=== PATIENT | female | born 2000 | race Caucasian/White ===

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

== ENCOUNTER 2021-03-15 12:08 | Emergency (ER) | payer BC, SELFPAY ==
[2021-03-15 14:16] VITALS: BP 140/88; PULSE 76; RESP 16; TEMP 36.8; O2SAT 99; BMI 22.8
--- NOTE | 2021-03-15 14:46 | HMH.EDUTC ---
[facility] [place] Disposition Clinical Impression: Vertigo Nausea & vomiting Qualifiers: Vomiting type: unspecified Vomiting Intractability: unspecified Qualified Code(s): R11.2 - Nausea with vomiting, unspecified Disposition: Home, Self-Care Condition on Discharge: Good Instructions: Vertigo, Nausea and Vomiting-Adult, Ondansetron Additional Instructions: You was given Meclizine for dizziness this medication will also help with your nausea associated with dizziness *Monitor Temp, Over the counter Motrin or Tylenol as directed/as needed Tylenol every 4 hours and Motrin every 6 hours (as long as your family doctor has told you that you can take it) for fever or pain. and straight to ER if unable to lower temp less than 101.0 after medication given *Warm salt water gargles may help to soothe the throat *Throat Lozenges *Warm fluids like tea with honey may help to soothe the throat *Sleep elevated *Humidifier/Vaporizer Follow up IMMEDIATELY for new or worsening symptoms or no Noticeable improvement over the next 48-72 hours. 911 for difficulty breathing or swallowing You were tested for today for COVID19 your test result should be back in the next 24-48 hours, you was given handout on how to check for your results on [facility] if you have issues or no internet access you may call the [facility] You was given a handout with instructions for Self Quarantine and Self isolation for while you wait on test results and what to do if they are positive If you are positive the Health Dept will be contacting you also Make sure to take your Vitamins Vit. C Vit D and Zinc if you can take them Prescriptions: Meclizine HCl 12.5 mg PO TID PRN #12 tab PRN Reason: Dizziness Transmission Status: Pending to [facility] Referrals: Guru Talamantes MD [Primary Care Provider] - As needed Forms: Work/School Release Time of Disposition: 14:53 Medical Decision Making - Nolberto Inquiry Pt receiving controlled substance: No Nolberto was queried for this patient: No Vital Signs: 03/15/21 14:16 Temperature 98.2 F Temperature Source Oral Pulse Rate [Right Radial] 76 Respiratory Rate 16 Blood Pressure [Right Arm] 140/88 Blood Pressure Mean [Right Arm] 105 02 Sat by Pulse Oximetry 99 Oxygen Delivery Method Room Air Orders (Tests/Meds): ORDERS Category Date Time Status Covid-19 Nasal PCR ([facility]) Routine Lab 03/15/21 14:28 Ordered Medical Decision Narrative: Patient denies chance of States that she is suppose to be on medication but she hasnt been on it for about 2-3 mths wants to get tested for COVID [facility] [place] HPI - General Stated complaint: headache Time Seen by Provider: 03/15/21 14:46 Mode of Arrival: Ambulatory Source of Information: Patient Limitations: No Limitations Description of Symptoms (Recalled from Triage Doc. by RN): Pt c/o being lightheaded and nauseas x2 days HEENT Symptoms (Recalled from RN notes): No Resp Symptoms (Recalled from RN notes): No Skin Symptoms (Recalled from RN notes): No MS Symptoms (Recalled from RN notes): No Functional Status (Recalled from RN notes): n/a - History of Present Illness Provider Complaint: Patient states that she has not been feeling well for the last couple of days States that she has been having nausea and feeling dizzy at times when she stands up to quickly States that she feels like the room is spinning States that she has a history of dizziness but several people at work have been out with COVID so she wanted to get tested States that [facility] is not having any dizziness at this time - Related Data Home Medications Medication Instructions Recorded Confirmed Fluoxetine HCl [Prozac] 40 mg PO DAILY 09/18/20 12/06/20 Previous Rx's Medication Instructions Recorded Promethazine HCl [Phenergan 12.5mg 12.5 mg RC Q6HP PRN #6 supp.rect 11/29/20 Suppository] Meclizine HCl 12.5 mg PO TID PRN #12 tab 03/15/21 Allergies Allergy/AdvReac Type Severity Reaction Sta
[2021-03-15 14:54] VITALS: BP 140/88; PULSE 76; RESP 16; TEMP 36.8; O2SAT 99
== END 2021-03-15 14:58 | disposition home or self-care (01) ==
PROVIDERS: Emergency Provider Nurse Practitioner; PCP Internal Medicine Adolescent Medicine
DX: R42 Dizziness and giddiness (principal); Z20.822 Contact with and (suspected) exposure to COVID-19
CPT/HCPCS: 99202; C9803; G0463; U0003; U0005

== ENCOUNTER 2021-04-04 10:46 | Emergency (ER) | payer BC, SELFPAY ==
[2021-04-04 10:50] VITALS: BP 103/77; PULSE 91; RESP 19; TEMP 37; O2SAT 99; BMI 26.5
[2021-04-04 10:59] VITALS: BP 103/77; PULSE 91; RESP 19; TEMP 37; O2SAT 99
--- NOTE | 2021-04-04 11:04 | HMH.EDUTC ---
[facility] [place] Impression: Menstrual cramps Disposition: Home, Self-Care Condition on Discharge: Good Instructions: Menstrual Problems, General (Alternative Therapy), Painful Menstrual Periods Additional Instructions: Over the counter Midol may help with Menstrual Craps and pain *Warm soaks in warm water and epson salt may help with cramping Follow up with OBGYN if needed Straigh to ER if any life threatening symptoms Return if needed Referrals: Guru Talamantes MD [Primary Care Provider] - As needed Forms: Work/School Release Time of Disposition: 11:06 Medical Decision Making - Nolberto Inquiry Pt receiving controlled substance: No Nolberto was queried for this patient: No Vital Signs: 04/04/21 10:50 04/04/21 10:59 Temperature 98.6 F 98.6 F Temperature Source Oral Pulse Rate 91 H Pulse Rate [Right Brachial] 91 H Respiratory Rate 19 19 Blood Pressure 103/77 L Blood Pressure [Right Arm] 103/77 L Blood Pressure Mean [Right Arm] 85 Blood Pressure Source [Right Arm] Automatic Cuff Blood Pressure Position [Right Arm] Sitting 02 Sat by Pulse Oximetry 99 Oxygen Delivery Method Room Air [facility] [place] - General Stated complaint: MOLINA Needs Dr note Time Seen by Provider: 04/04/21 11:04 Mode of Arrival: Ambulatory Source of Information: Patient Limitations: No Limitations Description of Symptoms (Recalled from Triage Doc. by RN): PATIENT STATES SHE CALLED INTO WORK THIS AM D/T BAD CRAMPS AND NAUSEA AND IS NEEDING A WORK NOTE HEENT Symptoms (Recalled from RN notes): No Resp Symptoms (Recalled from RN notes): No Skin Symptoms (Recalled from RN notes): No MS Symptoms (Recalled from RN notes): No Functional Status (Recalled from RN notes): WNL - History of Present Illness Provider Complaint: Patient states that she woke up and she had started her periods and was having bad cramping and nausea States that she gets this way sometimes when she starts her period and she had to call into work and needed a Doctor note - Related Data Home Medications Medication Instructions Recorded Confirmed Fluoxetine HCl [Prozac] 40 mg PO DAILY 09/18/20 12/06/20 Previous Rx's Medication Instructions Recorded Promethazine HCl [Phenergan 12.5mg 12.5 mg RC Q6HP PRN #6 supp.rect 11/29/20 Suppository] Meclizine HCl 12.5 mg PO TID PRN #12 tab 03/15/21 Allergies Allergy/AdvReac Type Severity Reaction Status Date / Time No Known Allergies Allergy Verified 11/29/20 11:31 - Worker's Comp Is this a Worker's Comp case?: No H History - Hepatitis A Screen Drug use history?: No High risk sexual behaviors?: No History of sexually transmitted infection?: No Currently employed?: No Childcare worker?: No Do you have indoor plumbing?: Yes Do you have electricity?: Yes Attestation statement:: This patient has been screened for Hepatitis A risk factors. I have reviewed the patient's past medical history: Yes - Social History Smoking Status: Smoker, status unknown Alcohol Intake: never Alcohol Intake Frequency:: other Substance Use Type: denies use Occupational Status: other ROS Obtained: Yes All systems reviewed & no additional complaints, Yes Systems reviewed as appropriate & no additional complaints - Constitutional Constitutional: Reports system reviewed and no additional complaints, except as docu, Denies body ache, Denies chills, Denies fever(s), Reports headache(s) - ENT Ears, Nose, Mouth, and Throat: Reports system reviewed and no additional complaints, except as docu - Cardiovascular Cardiovascular: Reports system reviewed and no additional complaints, except as docu - Respiratory Respiratory: Reports system reviewed and no additional complaints, except as docu - Gastrointestinal Gastrointestingal: Reports: system reviewed and no additional complaints, except as docu, cramping Physical Exam - General General appearance: alert, in no apparent distress - Respiratory Respirato
== END 2021-04-04 11:10 | disposition home or self-care (01) ==
PROVIDERS: Emergency Provider Nurse Practitioner; PCP Internal Medicine Adolescent Medicine
DX: N94.6 Dysmenorrhea, unspecified (principal); F17.210 Nicotine dependence, cigarettes, uncomplicated
CPT/HCPCS: 99202; G0463

== ENCOUNTER 2021-09-18 09:02 | Emergency (ER) | payer BC, SELFPAY ==
[2021-09-18 09:05] VITALS: BP 117/75; PULSE 74; RESP 18; TEMP 37.2; O2SAT 99; BMI 16.2
[2021-09-18 09:36] LABS: UTC Influenza A Antigen Positive (Negative)
[2021-09-18 09:37] LABS: UTC Influenza B Antigen Negative (Negative)
--- NOTE | 2021-09-18 09:44 | HMH.EDUTC ---
[facility] [place]ression: Influenza Disposition: Home, Self-Care Condition on Discharge: Good Instructions: How to Avoid a Cold or Flu, Influenza Additional Instructions: ? Start Tamiflu today if you are going to take it. Discussed risk and possible benefits. ? Lots of rest ? Increase Fluids water, Gatorade, powerade, pedialyte,if infant/toddler/child ? Alternate Tylenol and / or ibuprofen as discussed for fever, aches, chills Follow up IMMEDIATELY with your family doctor for new or worsening Symptoms OR no noticeable improvement over the next 48-72 hours, 911 for difficulty or breathing ? You or your child area contagious until no fever, aches, chills for 24 hours with medication for symptoms ? Help Prevent the spread of influenza: ? Wash your hands often. Use soap and water. Wash your hands after you use the bathroom, change a child's diapers, or sneeze. Wash your hands before you prepare or eat food. Use gel hand cleanser that has 60% alcohol, when soap and water are not available. Do not touch your eyes, nose, or mouth unless you have washed your hands first. ? Cover your mouth when you sneeze or cough. Cough into a tissue or the bend of your arm. If you use a tissue, throw it away immediately and wash your hands. ? Clean shared items with a germ-killing window cleaner. Clean table surfaces, doorknobs, and light switches. Do not share towels, silverware, and dishes with people who are sick. Wash bed sheets, towels, silverware, and dishes with soap and water. ? Wear a mask over your mouth and nose if you are sick. The face mask may help protect others from becoming infected with the flu. Wear the mask when in common areas of your home or if you seek care with a healthcare provider. ? Stay away from others if you are sick. Stay at home until 24 hours after your fever and symptoms are gone. Prescriptions: Oseltamivir Phosphate [Tamiflu 75mg Capsule] 75 mg PO BID #10 cap Transmission Status: Pending to [facility] Referrals: Guru Talamantes MD [Primary Care Provider] - As needed Forms: Work/School Release Time of Disposition: 09:45 Medical Decision Making - Nolberto Inquiry Pt receiving controlled substance: No Nolberto was queried for this patient: No Vital Signs: 09/18/21 09:05 Temperature 98.9 F Temperature Source Oral Pulse Rate [Right Brachial] 74 Respiratory Rate 18 Blood Pressure [Right Arm] 117/75 Blood Pressure Mean [Right Arm] 89 Blood Pressure Source [Right Arm] Automatic Cuff Blood Pressure Position [Right Arm] Sitting 02 Sat by Pulse Oximetry 99 Oxygen Delivery Method Room Air - Lab Data Lab results reviewed: Yes: I reviewed the patient's lab results. Lab Results 09/18/21 09:16: Influenza Type A Ag Positive A, Influenza Type B Ag Negative [facility] [place] - General Stated complaint: fever, weakness, chills Time Seen by Provider: 09/18/21 09:44 Mode of Arrival: Ambulatory Source of Information: Patient Limitations: No Limitations Description of Symptoms (Recalled from Triage Doc. by RN): PATIENT C/O FEVER, CHILLS, SWEATING, AND NAUSEA SINCE MONDAY HEENT Symptoms (Recalled from RN notes): No Resp Symptoms (Recalled from RN notes): No Skin Symptoms (Recalled from RN notes): No MS Symptoms (Recalled from RN notes): No Functional Status (Recalled from RN notes): WNL - History of Present Illness Provider Complaint: Patient state that she started feeling bad on with body aches States that since then she has been having body aches, chills, fever, sweating and nausea States that today she was still feeling bad so she came back in to get checked - Related Data Home Medications Medication Instructions Recorded Confirmed Fluoxetine HCl 40 mg PO DAILY 09/18/21 09/18/21 Previous Rx's Medication Instructions Recorded Oseltamivir Phosphate [Tamiflu 75 mg PO BID #10 cap 09/18/21 75mg Capsule] Allergies Allergy/AdvReac Type Severity Reaction Status Date / Time No Kn
[2021-09-18 09:51] VITALS: BP 117/75; PULSE 74; RESP 18; TEMP 37.2; O2SAT 99
== END 2021-09-18 09:54 | disposition home or self-care (01) ==
PROVIDERS: Emergency Provider Nurse Practitioner; PCP Internal Medicine Adolescent Medicine
DX: J10.1 Influenza due to other identified influenza virus with other respiratory manifestations (principal); F17.290 Nicotine dependence, other tobacco product, uncomplicated
CPT/HCPCS: 87804; 99212; G0463

== ENCOUNTER 2022-01-22 11:15 | Emergency (ER) | payer BC, SELFPAY ==
[2022-01-22 11:55] VITALS: BP 131/73; PULSE 92; RESP 19; TEMP 37.3; O2SAT 100; BMI 18.8
[2022-01-22 12:03] LABS: Apearance,Urine Clear (Clear); Bilirubin,Urine Negative (Negative); Blood, Urine 2+ (Negative); Color,Urine Yellow (Yellow); Glucose,Urine (UA) Negative (Negative); Ketones,Urine Negative (Negative); Protein,Urine 1+ (Negative); UTC Leukocyte Esterase,Urine Trace (Negative); UTC Nitrate,Urine Negative (Negative); Urobilinogen,Urine 0.2 EU/dl (0.2)
--- NOTE | 2022-01-22 12:12 | HMH.EDUTC ---
[facility] [place] Clinical Impression: UTI (urinary tract infection) Qualifiers: Urinary tract infection type: acute cystitis Hematuria presence: without hematuria Qualified Code(s): N30.00 - Acute cystitis without hematuria Disposition: Home, Self-Care Condition on Discharge: Good Instructions: DI for Urinary Tract Infection (UTI) Additional Instructions: Increase fluids, water and not soda or tea. Can drink cranberry juice or cranberry extract. White front to back Wear cotton underwear Empty bladder after intercourse Start antibiotics immediately and make sure you take the full course although you may start to see improvement over the next 48 hours. You can eat yogurt or take probiotics to decrease diarrhea or yeast infection caused by the antibiotic Be sure to follow-up anytime for new or worsening symptoms in 48 hours for wound urine culture results be sure to let you PCP no recent urine for culture so they can request records and ensure that you have appropriate antibiotic if you are not getting better or getting worse. If symptoms worsen or do not improve return or be seen in the ER. Follow-up with primary care this week. Prescriptions: cephALEXin [Cephalexin 500mg Tab] 500 mg PO BID 7 Days #14 tab Transmission Status: Pending to [facility] Referrals: Guru Talamantes MD [Primary Care Provider] - Time of Disposition: 12:17 Medical Decision Making - Nolberto Inquiry Pt receiving controlled substance: No Vital Signs: 01/22/22 11:55 Temperature 99.1 F Temperature Source Oral Pulse Rate [Right Brachial] 92 H Respiratory Rate 19 Blood Pressure [Right Arm] 131/73 Blood Pressure Mean [Right Arm] 92 Blood Pressure Source [Right Arm] Automatic Cuff Blood Pressure Position [Right Arm] Sitting 02 Sat by Pulse Oximetry 100 Oxygen Delivery Method Room Air - Lab Data Lab Results 01/22/22 12:02: Urine Color Yellow, Urine Appearance Clear, Urine pH 6.0, Ur Specific [place] 1.030, Urine Protein 1+, Urine Glucose (UA) Negative, Urine Ketones Negative, Urine Blood 2+, Urine Nitrate Negative, Urine Bilirubin Negative, Urine Urobilinogen 0.2, Ur Leukocyte Esterase Trace Orders (Tests/Meds): ORDERS Category Date Time Status Urine Culture Stat Micro 01/22/22 12:04 Ordered [facility] [place] - General Chief complaint: [facility] Stated complaint: back pain Time Seen by Provider: 01/22/22 12:12 Mode of Arrival: Ambulatory Source of Information: Patient Limitations: No Limitations Description of Symptoms (Recalled from Triage Doc. by RN): PATIENT C/O CHILLS, VOMITING, FEVER, AND BACK PAIN SINCE YESTERDAY HEENT Symptoms (Recalled from RN notes): No Resp Symptoms (Recalled from RN notes): No Skin Symptoms (Recalled from RN notes): No MS Symptoms (Recalled from RN notes): No Functional Status (Recalled from RN notes): WNL - History of Present Illness Provider Complaint: 21 yr old female presents for fever,chills,back pain and uti symptoms - Related Data Previous Rx's Medication Instructions Recorded fluoxetine 40 mg capsule 40 mg PO DAILY #30 cap 12/17/21 cephALEXin [Cephalexin 500mg Tab] 500 mg PO BID 7 Days #14 tab 01/22/22 Allergies Allergy/AdvReac Type Severity Reaction Status Date / Time No Known Allergies Allergy Verified 09/30/21 13:47 - Worker's Comp Is this a Worker's Comp case?: No [facility] History - Hepatitis A Screen Attestation statement:: This patient has been screened for Hepatitis A risk factors. I have reviewed the patient's past medical history: Yes Comment: she did get the COVID vaccines - Social History Smoking Status: Current every day smoker Tobacco Type: e-cigarettes (not cigarettes; just her vape; she gets the throw away; 1000 puffs lasts her 4 days) Alcohol Intake: never Alcohol Intake Frequency:: other Substance Use Type: denies use Occupational Status: other ROS Obtained: Yes Systems reviewed as appropriate & no additional complaints
[2022-01-22 12:18] VITALS: BP 131/73; PULSE 92; RESP 19; TEMP 37.3; O2SAT 100
== END 2022-01-22 12:25 | disposition home or self-care (01) ==
PROVIDERS: Emergency Provider Nurse Practitioner Family; PCP Internal Medicine Adolescent Medicine
DX: N30.00 Acute cystitis without hematuria (principal); M54.9 Dorsalgia, unspecified; R50.81 Fever presenting with conditions classified elsewhere; R11.10 Vomiting, unspecified; Z72.0 Tobacco use; R35.0 Frequency of micturition; R39.15 Urgency of urination; R30.0 Dysuria
CPT/HCPCS: 81003; 87086; 87088; 87186; 99212; G0463

== ENCOUNTER 2022-07-02 07:56 | Emergency (ER) | payer BC, SELFPAY ==
--- NOTE | 2022-07-02 08:22 | EXP.UTC ---
Discharge Plan Disposition Patient Disposition: Home, Self-Care Condition: Good Prescriptions Prescriptions: New azithromycin [Zithromax] 250 mg tablet 250 mg PO UD DOSE PK Qty: 6 0RF Rx Instructions: Take two (2) tablets today, then one (1) tablet days #2 thru #5 [id number]-agghtlswv-QE [Bromfed DM] 2-30-10 mg/5 mL Syrup 5 ml PO Q6H PRN (Reason: Cough) Qty: 240 0RF ondansetron 4 mg Tablet,Disintegrating 4 mg PO Q8H PRN (Reason: Nausea) Qty: 20 0RF No Action fluoxetine 40 mg capsule 40 mg PO DAILY Qty: 30 1RF hydroxyzine HCl 25 mg tablet 25 mg PO TID Qty: 90 0RF Referrals Follow up/Referrals: Guru Talamantes MD [Primary Care Provider] - See instructions Activity Restrictions/Add. Instructions Additional Instructions/Restrictions: Drink plenty of fluids. Take tylenol or ibuprofen for pain or fever. Take the medications as directed. Follow up with your regular doctor. GO TO THE ER FOR ANY WORSENING SYMPTOMS Clinical Impressions Clinical Impression: Acute viral syndrome, Sinusitis Discharge ED Provider: Buzz Cunningham [facility] General Stated complaint: Congestion,Nausea, Fever Time Seen by Provider: 07/02/22 08:22 History of Present Illness Provider Complaint: She states that for the past 4 days she has had fever, chills, body aches, nausea, vomiting and cough. Related Data Previous Rx's Medication Instructions Recorded fluoxetine 40 mg capsule 40 mg PO DAILY Depression #30 caps 05/17/22 hydroxyzine HCl 25 mg tablet 25 mg PO TID #90 tabs 05/17/22 azithromycin 250 mg tablet 250 mg PO UD DOSE PK #6 tabs 07/02/22 (Zithromax) whsenbrnzswerda-kldoklpamugwdso-LD 5 ml PO Q6H PRN Cough #240 mL 07/02/22 2 mg-30 mg-10 mg/5 mL oral syrup (Bromfed DM) ondansetron 4 mg disintegrating 4 mg PO Q8H PRN Nausea #20 tabs 07/02/22 tablet Allergies Allergy/AdvReac Type Severity Reaction Status Date / Time No Known Allergies Allergy Verified 07/02/22 08:30 [facility] Disclaimer: The information contained in this section may have been updated after the patient was seen, as this information can be updated by other users. Social History Smoking Status: Current every day smoker tobacco type: e-cigarettes alcohol intake: never substance use type: denies use current occupational status: other Travel in the last 8 weeks: None number of children: 0 ROS Obtained: Yes All systems reviewed & no additional complaints except as documented Constitutional Constitutional: Reports chills and Reports fever(s) Eyes Eyes: Denies eye discharge ENT Ears, Nose, Mouth, and Throat: Reports as per HPI Cardiovascular Cardiovascular: Denies chest pain Respiratory Respiratory: Denies chest congestion and Reports cough Gastrointestinal Gastrointestingal: Reports nausea; Denies abdominal pain, constipation, cramping, diarrhea or vomiting Musculoskeletal Musculoskeletal: Denies arthralgias Integumentary/Breasts Skin/Breast: Denies rash Neurologic Neurologic: Denies paresthesias Physical Exam General General appearance: alert and in no apparent distress Head Head exam: atraumatic, normocephalic and normal inspection Eye Eye exam: Present normal appearance, PERRL and EOMI ENT ENT exam: Present mucous membranes moist and normal external ear exam Expanded ENT Exam TM/Canal exam: Bilateral TM: erythema and bulging Nose exam: Absent sinus tenderness Mouth exam: Present normal external inspection; Absent drooling Teeth exam: Present normal inspection Throat exam: Present tonsillar erythema, tonsillomegaly and tonsillar exudate Neck Neck exam: Present normal inspection, full ROM and trachea midline; Absent tenderness, meningismus or lymphadenopathy Chest Chest inspection: Present normal inspection and symmetric chest wall rise; Absent tenderness Respiratory Respiratory exam: Present normal lung sounds bilaterally; Ab
[2022-07-02 08:27] VITALS: BP 119/77; PULSE 107; RESP 18; TEMP 37.1; O2SAT 98; BMI 21.2
[2022-07-02 08:35] LABS: UTC Strep Screen (Rapid) Negative (Negative)
[2022-07-02 08:36] LABS: UTC Influenza A Antigen Negative (Negative); UTC Influenza B Antigen Negative (Negative)
[2022-07-02 08:49] VITALS: BP 119/77; PULSE 107; RESP 18; TEMP 37.1
[2022-07-02 08:55] LABS: Adenovirus,PCR Not Detected (NotDetected); Bordetella Pertussis Not Detected (NotDetected); Chlamydophila Pneumoniae, PCR Not Detected (NotDetected); Coronavirus 19, PCR Not Detected (NotDetected); Coronavirus 229E Not Detected (NotDetected); Coronavirus NL63 Not Detected (NotDetected); Coronavirus OC43 Not Detected (NotDetected); Coronovirus HKU1,PCR Not Detected (NotDetected); Human Metapneumovirus Not Detected (NotDetected); Influenza A, PCR Not Detected (NotDetected); Influenza AH1, 2009 Not Detected (NotDetected); Influenza AH1, PCR Not Detected (NotDetected); Influenza AH3,PCR Not Detected (NotDetected); Influenza B, PCR Not Detected (NotDetected); Mycoplasma Pneumoniae, PCR Not Detected (NotDetected); Parainfluenza 1, PCR Not Detected (NotDetected); Parainfluenza 2, PCR Not Detected (NotDetected); Parainfluenza 3, PCR Not Detected (NotDetected); Parainfluenza 4, PCR Not Detected (NotDetected); Respiratory Syncytial Virus Not Detected (NotDetected)
[2022-07-02 10:25] LABS: Rhinovirus/Enterovirus Detected (NotDetected)
== END 2022-07-02 08:49 | disposition home or self-care (01) ==
PROVIDERS: Emergency Provider Nurse Practitioner Family; PCP Internal Medicine Adolescent Medicine
DX: J32.9 Chronic sinusitis, unspecified (principal); B34.8 Other viral infections of unspecified site
CPT/HCPCS: 87581; 87632; 87798; 87804; 87880; 99212; C9803; G0463; U0003; U0005

== ENCOUNTER 2022-08-31 09:43 | Emergency (ER) | payer OTHER, SELFPAY ==
[2022-08-31 09:44] VITALS: BP 128/77; PULSE 106; RESP 20; TEMP 37.4; O2SAT 95; BMI 24.3
--- NOTE | 2022-08-31 10:07 | EXP.UTC ---
Discharge Plan Disposition Patient Disposition: Home, Self-Care Condition: Good Prescriptions Prescriptions: New azithromycin [Zithromax] 250 mg tablet 250 mg PO UD DOSE PK Qty: 6 0RF Rx Instructions: Take two (2) tablets today, then one (1) tablet days #2 thru #5 ivnpdfqkbshfbgg-hjcocqlcj-OR [Bromfed DM] 2-30-10 mg/5 mL Syrup 5 ml PO Q6H PRN (Reason: Cough) Qty: 240 0RF methylprednisolone 4 mg Tablets,Dose Pack 4 mg PO DIRECTED Qty: 21 0RF No Action fluoxetine 40 mg capsule 40 mg PO DAILY Qty: 30 1RF hydroxyzine HCl 25 mg tablet 25 mg PO TID Referrals Follow up/Referrals: Guru Talamantes MD [Primary Care Provider] - See instructions Activity Restrictions/Add. Instructions Additional Instructions/Restrictions: Drink plenty of fluids. Take tylenol or ibuprofen for pain or fever. Take the medications as directed. Follow up with your regular doctor. GO TO THE ER FOR ANY WORSENING SYMPTOMS Clinical Impressions Clinical Impression: Bronchitis Stand Alone Forms Stand Alone Forms: Work/School Release Instructions Patient Instructions: DI for Sinusitis Discharge ED Provider: Buzz Cunningham [facility] [place] General Stated complaint: lightheaded, chills, stomach pain, MOLINA Mode of Arrival: Ambulatory Source of Information: Patient Limitations: No Limitations Time Seen by Provider: 08/31/22 10:07 Description of Symptoms (Recalled from Triage Doc. by RN): runny nose, MOLINA, and pressure in ears HEENT Symptoms (Recalled from RN notes): Yes Resp Symptoms (Recalled from RN notes): No Skin Symptoms (Recalled from RN notes): No MS Symptoms (Recalled from RN notes): No Functional Status (Recalled from RN notes): n/a History of Present Illness Provider Complaint: She states that for the past 3 days she has had sinus congestion, sore throat, bilateral ear pain and low grade fever. Related Data Home Medications Medication Instructions Recorded Confirmed hydroxyzine HCl 25 mg tablet 25 mg PO TID . 08/31/22 08/31/22 Previous Rx's Medication Instructions Recorded fluoxetine 40 mg capsule 40 mg PO DAILY Depression #30 caps 07/19/22 azithromycin 250 mg tablet 250 mg PO UD DOSE PK #6 tabs 08/31/22 (Zithromax) ihivvswpzrzcyjy-zejektkmohckvxk-RJ 5 ml PO Q6H PRN Cough #240 mL 08/31/22 2 mg-30 mg-10 mg/5 mL oral syrup (Bromfed DM) methylprednisolone 4 mg tablets in 4 mg PO DIRECTED #21 tabs 08/31/22 a dose pack Allergies Allergy/AdvReac Type Severity Reaction Status Date / Time No Known Allergies Allergy Verified 08/31/22 10:06 Worker's Comp Is this a Worker's Comp case?: No PFSH REPLACED BY [facility] Disclaimer: The information contained in this section may have been updated after the patient was seen, as this information can be updated by other users. Social History Smoking Status: Current every day smoker tobacco type: e-cigarettes alcohol intake: never substance use type: denies use current occupational status: other Travel in the last 8 weeks: None number of children: 0 ROS Obtained: Yes All systems reviewed & no additional complaints except as documented Constitutional Constitutional: Denies chills and Denies fever(s) Eyes Eyes: Denies eye discharge ENT Ears, Nose, Mouth, and Throat: Denies dizziness, Denies otalgia and Denies sore throat Cardiovascular Cardiovascular: Denies chest pain Respiratory Respiratory: Denies shortness of breath, Reports chest congestion, Reports cough, Denies stridor and Denies wheezing Gastrointestinal Gastrointestingal: Denies nausea or vomiting Musculoskeletal Musculoskeletal: Reports system reviewed and no additional complaints, except as documented and Denies arthralgias Integumentary/Breasts Skin/Breast: Denies rash Neurologic Neurologic: Denies dizziness and Denies paresthesias Allergic/Immunologic Allergic/Immunologic: Denies wheezing Physical Exam General
[2022-08-31 11:05] LABS: UTC Influenza A Antigen Negative (Negative); UTC Influenza B Antigen Negative (Negative)
[2022-08-31 11:27] VITALS: BP 123/84; PULSE 73; RESP 20; TEMP 37.1; O2SAT 97
== END 2022-08-31 11:27 | disposition home or self-care (01) ==
PROVIDERS: Emergency Provider Nurse Practitioner Family; PCP Internal Medicine Adolescent Medicine
DX: J40 Bronchitis, not specified as acute or chronic (principal)
CPT/HCPCS: 87804; 99212; 99213; C9803; G0463; U0003; U0005

== ENCOUNTER 2023-02-13 13:43 | Emergency (ER) | payer OTHER, SELFPAY ==
[2023-02-13 14:10] VITALS: BP 142/87; PULSE 67; RESP 20; TEMP 37.1; O2SAT 97; BMI 28.3
[2023-02-13 14:32] LABS: UTC Pregnancy Test, Urine Negative (Negative)
--- NOTE | 2023-02-13 14:34 | EXP.UTC ---
Discharge Plan Disposition Patient Disposition: Home, Self-Care Condition: Good Prescriptions Prescriptions: No Action fluoxetine 40 mg capsule 40 mg PO DAILY Qty: 30 1RF levonorgestrel-ethinyl estrad [Aviane] 0.1-20 mg-mcg tablet 1 tab PO DAILY hydroxyzine HCl 25 mg tablet 25 mg PO TID Referrals Follow up/Referrals: Guru Talamantes MD [Primary Care Provider] - See instructions Activity Restrictions/Add. Instructions Additional Instructions/Restrictions: Take medication as prescribed Make sure that you are drinking plenty of fluids Follow up with your Family Doctor if no improvement or any worsening of symptoms Straight to ER if stomach pain returns or gets worse Clinical Impressions Clinical Impression: Viral syndrome Stand Alone Forms Stand Alone Forms: Work/School Release Instructions Patient Instructions: DI for Anxiety -- Adult, DI for Nausea -- Adult Discharge ED Provider: Geri Gibson [facility] General Stated complaint: stomach pain, vomiting, dizzy Mode of Arrival: Ambulatory Source of Information: Patient Limitations: No Limitations Time Seen by Provider: 02/13/23 14:34 Description of Symptoms (Recalled from Triage Doc. by RN): PATIENT C/O VOMITING, STOMACH ACHE, AND HOT/COLD CHILLS THAT STARTED THIS MORNING HEENT Symptoms (Recalled from RN notes): No Resp Symptoms (Recalled from RN notes): No Skin Symptoms (Recalled from RN notes): No MS Symptoms (Recalled from RN notes): No Functional Status (Recalled from RN notes): WNL History of Present Illness Provider Complaint: Patient states that she was at work this morning and she started having cramping in her abdomen States that she had a BM and it was normal but her stomach felt crampy and upset States that she vomited a couple of times and has been feeling hot and cold on and off today States that has anxiety and it is making it worse and she feels hormonal States that her stomach isnt hurting now but still feeling anxious with nausea States that she has not taken her Hydroxyzine today Related Data Home Medications Medication Instructions Recorded Confirmed hydroxyzine HCl 25 mg tablet 25 mg PO TID Anxiety 02/13/23 02/13/23 levonorgestrel-ethinyl estradiol 1 tab PO DAILY Control 02/13/23 02/13/23 0.1 mg-20 mcg tablet (Aviane) Previous Rx's Medication Instructions Recorded fluoxetine 40 mg capsule 40 mg PO DAILY Depression #30 caps 01/13/23 Allergies Allergy/AdvReac Type Severity Reaction Status Date / Time No Known Allergies Allergy Verified 02/10/23 10:52 Worker's Comp Is this a Worker's Comp case?: No [facility] Disclaimer: The information contained in this section may have been updated after the patient was seen, as this information can be updated by other users. Surgical History No history of previous surgery Family History Other FHx: mental illness Substance abuse Social History Smoking Status: Current every day smoker tobacco type: e-cigarettes alcohol intake: never substance use type: denies use current occupational status: other Travel in the last 8 weeks: None number of children: 0 ROS Obtained: Yes All systems reviewed & no additional complaints except as documented and Yes Systems reviewed as appropriate & no additional complaints except as documented Constitutional Constitutional: Reports system reviewed and no additional complaints, except as documented, Reports as per HPI, Reports body ache and Reports chills ENT Ears, Nose, Mouth, and Throat: Reports system reviewed and no additional complaints, except as documented and Reports as per HPI Cardiovascular Cardiovascular: Reports system reviewed and no additional complaints, except as documented and Reports as per HPI Respiratory Respiratory: Reports system r
[2023-02-13 14:44] LABS: Microscopic, Urine URINE MICROSCOPIC (MICROSCOPIC)
[2023-02-13 14:56] LABS: Appearance,Urine CLEAR (Clear); Bilirubin,Urine Negative (Negative); Blood, Urine Negative (Negative); Color,Urine YELLOW (Yellow); Glucose,Urine (UA) Negative (Negative); Ketones,Urine Negative (Negative); Leukocyte Esterase,Urine Negative (Negative); Nitrate,Urine Negative (Negative); Protein,Urine Negative (Negative); Specific Gravity, Urine <= 1.005 (1.005-1.030); Urobilinogen,Urine 0.2 EU/dl (0.2)
[2023-02-13 15:13] VITALS: BP 142/87; PULSE 67; RESP 20; TEMP 37.1; O2SAT 97
[2023-02-13 15:15] LABS: WBC,Urine Occasional #/hpf (0-3)
== END 2023-02-13 15:21 | disposition home or self-care (01) ==
PROVIDERS: Emergency Provider Nurse Practitioner; PCP Internal Medicine Adolescent Medicine
DX: R10.9 Unspecified abdominal pain (principal); R11.2 Nausea with vomiting, unspecified; B34.9 Viral infection, unspecified; F17.290 Nicotine dependence, other tobacco product, uncomplicated; F41.1 Generalized anxiety disorder
CPT/HCPCS: 81001; 81025; 99212; 99214; G0463

== ENCOUNTER → 2023-05-05 13:17 | Outpatient (CLI) | payer OTHER, SELFPAY ==
[2023-05-05 12:51] LABS: Basophils % 0.5 % (0.1-2.0); Eosinophils # 0.1 K/mm3 (0.0-0.4); Eosinophils % 1.5 % (0.1-12.0); Hematocrit 41.1 % (37.0-47.0); Hemoglobin 13.4 g/dL (12.2-16.2); Lymphocytes # 1.9 K/mm3 (0.7-4.5); Mean Corpuscular HGB Conc 32.7 g/dL (31.8-35.4); Mean Corpuscular Hemoglobin 27.8 pg (27.0-31.2); Mean Corpuscular Volume 85.2 fl (81-99); Mean Platelet Volume 9.3 fl (7.4-10.4); Monocytes # 0.4 K/mm3 (0.1-1.0); Monocytes % 7.3 % (1.7-9.3); Neutrophils # 3.6 K/mm3 (1.8-7.8); Neutrophils % 59.7 % (37.0-80.0); Platelet Count 297 K/mm3 (142-424); Red Blood Count 4.82 M/mm3 (4.20-5.40); Red Cell Distribution Width 14.7 % (11.5-17.5)
[2023-05-05 13:21] LABS: Alanine Aminotransferase 24 U/L (12-78); Albumin Level 4.5 g/dl (3.5-5.0); Albumin/Globulin Ratio 1.2 (1.1-1.8); Alkaline Phosphatase 85 U/L (38-126); Anion Gap 15.2 mEq/L (5-15); Aspartate Amino Transferase 32 U/L (14-36); Bilirubin,Total 0.4 mg/dl (0.2-1.3); Blood Urea Nitrogen 9 mg/dl (7-17); Calcium 8.9 mg/dl (8.4-10.2); Carbon Dioxide 26 mmol/L (22.0-30.0); Chloride 103 mmol/L (98-107); Estimated Glomerular Filt Rate 154 ml/min (>60); GFR (African American) 187 ML/MIN (>60); Globulin 3.7 g/dL (1.3-3.2); Glucose 82 mg/dl (74-100); Iron 167 ug/dL (37-170); Potassium 4.2 mmoL/L (3.5-5.1); Sodium 140 mmol/L (136-145); Total Protein,Serum 8.2 g/dl (6.3-8.2)
[2023-05-05 13:42] LABS: Free Thyroxine Index 3.1 ug/dL (5.93-13.13); T4 (Thyroxine) 10.4 ug/dl (5.53-11.0); Triiodothryronine (T3) Uptake 30 % (23.5-40.5)
[2023-05-05 13:56] LABS: Thyroid Stimulating Hormone 0.67 uIU/mL (0.465-4.68)
[2023-05-05 14:03] LABS: Total Iron Binding Capacity 498 ug/dL (265-497)
[2023-05-05 14:10] LABS: Vitamin B12 517 pg/mL (239-931)
[2023-05-05 17:00] LABS: Hemoglobin A1C 5.1 % (4.0-6.0)
[2023-05-07 08:16] LABS: Thyroid Peroxidase Antibodies 23 IU/mL (0-34)
[2023-05-16 19:12] LABS: 1,25 Dihydroxy Vitamin D 57 pg/mL (.); 1,25-Dihydroxy, Vitamin D-2 <10 pg/mL (.); 1,25-Dihydroxy, Vitamin D-3 52 pg/mL (.)
== END ==
PROVIDERS: PCP Internal Medicine Adolescent Medicine; Visit Provider Nurse Practitioner Psychiatric/Mental Health
DX: Z00.00 Encounter for general adult medical examination without abnormal findings (principal); R53.83 Other fatigue; Z79.899 Other long term (current) drug therapy
CPT/HCPCS: 80053; 82607; 82652; 83036; 83540; 83550; 84436; 84443; 84479; 85025; 86376

== ENCOUNTER 2023-06-09 19:51 | Emergency (ER) | payer OTHER, SELFPAY ==
--- NOTE | 2023-06-09 19:49 | ECG_ITS ---
APPROVED REPORT Exam: Resting ECG HR:79 bpm ECG Measurements Heart Rate 79 AXES HI 155 P 59 QRSd 86 QRS 72 QT 361 T 47 QTc 396 Conclusion SINUS RHYTHM NORMAL ECG UNCONFIRMED REPORT Electronically signed by : Guru Talamantes MD 06/10/2023 09:56:48
[2023-06-09 19:51] VITALS: BP 146/90; PULSE 83; RESP 16; TEMP 36.6; O2SAT 99; BMI 29.0
[2023-06-09 20:17] LABS: Basophils % 0.4 % (0.1-2.0); Eosinophils % 0.1 % (0.1-12.0); Hematocrit 42.6 % (37.0-47.0); Hemoglobin 13.9 g/dL (12.2-16.2); Lymphocytes # 1.8 K/mm3 (0.7-4.5); Lymphocytes % 21.7 % (10-50); Mean Corpuscular HGB Conc 32.6 g/dL (31.8-35.4); Mean Corpuscular Hemoglobin 27.2 pg (27.0-31.2); Mean Corpuscular Volume 83.3 fl (81-99); Monocytes # 0.5 K/mm3 (0.1-1.0); Monocytes % 6.4 % (1.7-9.3); Neutrophils # 5.8 K/mm3 (1.8-7.8); Neutrophils % 71.4 % (37.0-80.0); Platelet Count 298 K/mm3 (142-424); Red Blood Count 5.11 M/mm3 (4.20-5.40); Red Cell Distribution Width 14.9 % (11.5-17.5); White Blood Count 8.1 K/mm3 (4.8-10.8)
[2023-06-09 20:21] LABS: Microscopic, Urine URINE MICROSCOPIC (MICROSCOPIC)
--- NOTE | 2023-06-09 20:22 | HMH.EDGENADL ---
Discharge Plan Disposition Patient Disposition: Home, Self-Care Condition: Good Prescriptions Prescriptions: No Action fluoxetine 40 mg capsule 40 mg PO DAILY Qty: 30 1RF hydroxyzine HCl 25 mg tablet 25 mg PO TID Qty: 90 0RF levonorgestrel-ethinyl estrad [Aviane] 0.1-20 mg-mcg tablet 1 tab PO DAILY Referrals Follow up/Referrals: Guru Talamantes MD [Primary Care Provider] - See instructions Activity Restrictions/Add. Instructions Additional Instructions/Restrictions: Please follow-up with your primary care provider. Please return to the emergency department if you develop any new or worsening symptoms or become concerned for your health. Clinical Impressions Clinical Impression: Abdominal pain, Chest pain, Heart palpitations Instructions Patient Instructions: DI for Acute Abdominal Pain Discharge ED Provider: Agus Vega Adult HPI General Chief complaint: Abdominal Pain Stated complaint: chest pain Time Seen by Provider: 06/09/23 20:15 Mode of Arrival: Ambulatory Source of Information: Patient Limitations: No Limitations Description of Symptoms (Recalled from ER Triage Doc. by RN): pt c/o abd pain radiating to chest with nausea that started yesterday. pt seen bernardino salazar and was prescript buspar today but hasn't started it History of Present Illness HPI narrative: 23-year-old female, history of anxiety and depression presents with chest pain and nausea and abdominal pain and palpitations. Symptoms have been worsening recently. She reports she feels like her stomach is cramping. She is unable to specify a specific location of abdominal pain. She denies any significant vomiting. She was seen by the PCP and was supposed to start BuSpar but has not started it yet. She is on control. Related Data Home Medications Medication Instructions Recorded Confirmed levonorgestrel-ethinyl estradiol 1 tab PO DAILY Control 02/13/23 06/09/23 0.1 mg-20 mcg tablet (Aviane) Previous Rx's Medication Instructions Recorded fluoxetine 40 mg capsule 40 mg PO DAILY Depression #30 caps 05/05/23 hydroxyzine HCl 25 mg tablet 25 mg PO TID Anxiety #90 tabs 05/05/23 Allergies Allergy/AdvReac Type Severity Reaction Status Date / Time No Known Allergies Allergy Verified 05/10/23 13:36 [facility] Disclaimer: The information contained in this section may have been updated after the patient was seen, as this information can be updated by other users. Surgical History No history of previous surgery Family History Other FHx: mental illness Substance abuse Social History Smoking Status: Current every day smoker tobacco type: e-cigarettes alcohol intake: never substance use type: denies use current occupational status: other Travel in the last 8 weeks: None number of children: 0 ROS Obtained: Yes All systems reviewed & no additional complaints except as documented Physical Exam General General appearance: alert and anxious (Intermittently tearful) Head Head exam: atraumatic and normocephalic Eye Eye exam: Present normal appearance, PERRL and EOMI ENT ENT exam: Present normal oropharynx and normal external ear exam Neck Neck exam: Present normal inspection and full ROM Chest Chest inspection: Present normal inspection, symmetric chest wall rise and tenderness Respiratory Respiratory exam: Present normal lung sounds bilaterally; Absent respiratory distress Cardiovascular Cardiovascular exam: Present regular rate and normal rhythm Abdominal Exam Abdominal exam: Present soft and tenderness (Mild, diffuse); Absent distention or guarding Extremities Exam Extremities exam: Present normal inspection; Absent edema or joint swelling Back Exam Back exam: Present normal inspection; Absent tenderness Neur
[2023-06-09 20:27] LABS: Alanine Aminotransferase 34 U/L (12-78); Albumin Level 4.6 g/dl (3.5-5.0); Albumin/Globulin Ratio 1.1 (1.1-1.8); Alkaline Phosphatase 93 U/L (38-126); Anion Gap 10.7 mEq/L (5-15); Aspartate Amino Transferase 42 U/L (14-36); Bilirubin,Total 0.4 mg/dl (0.2-1.3); Blood Urea Nitrogen 5 mg/dl (7-17); Calcium 8.7 mg/dl (8.4-10.2); Carbon Dioxide 24 mmol/L (22.0-30.0); Chloride 105 mmol/L (98-107); Creatinine Clearance Estimated 207 mL/min (50-200); Estimated Glomerular Filt Rate 154 ml/min (>60); GFR (African American) 187 ML/MIN (>60); Globulin 4.3 g/dL (1.3-3.2); Glucose 116 mg/dl (74-100); Potassium 3.7 mmoL/L (3.5-5.1); Sodium 136 mmol/L (136-145); Total Protein,Serum 8.9 g/dl (6.3-8.2)
[2023-06-09 20:27] LABS: Appearance,Urine CLEAR (Clear); Bilirubin,Urine Negative (Negative); Blood, Urine TRACE-L (Negative); Color,Urine YELLOW (Yellow); Glucose,Urine (UA) Negative (Negative); Ketones,Urine Negative (Negative); Leukocyte Esterase,Urine 1+ (Negative); Nitrate,Urine Negative (Negative); Protein,Urine Negative (Negative); Specific Gravity, Urine <= 1.005 (1.005-1.030); Urobilinogen,Urine 0.2 EU/dl (0.2)
[2023-06-09 20:30] VITALS: BP 124/84; PULSE 78; RESP 16; O2SAT 99
[2023-06-09 20:37] LABS: Lipase 30 U/L (23-300)
[2023-06-09 20:39] LABS: D-Dimer 0.89 ug/mL (0.0-0.5)
[2023-06-09 20:43] LABS: Troponin I < 0.01 ng/ml (0.00-0.034)
[2023-06-09 21:09] LABS: Bacteria,Urine Trace /lpf; RBC,Urine Occasional #/hpf (0-3); WBC,Urine Occasional #/hpf (0-3)
[2023-06-09 22:13] LABS: HCG Qualitative, Serum Negative (Negative)
[2023-06-09 22:52] VITALS: BP 121/74; PULSE 69; RESP 16; TEMP 36.6; O2SAT 99
== END 2023-06-09 22:53 | disposition home or self-care (01) ==
PROVIDERS: Emergency Provider Emergency Medicine; PCP Internal Medicine Adolescent Medicine
DX: R07.9 Chest pain, unspecified (principal); R10.9 Unspecified abdominal pain; R00.2 Palpitations; F17.290 Nicotine dependence, other tobacco product, uncomplicated; R11.0 Nausea
CPT/HCPCS: 80053; 81001; 83690; 84484; 84703; 85025; 85378; 87086; 93005; 96361; 96374; 96375; 99285; J2405

== ENCOUNTER 2023-06-13 13:58 | Emergency (ER) | payer OTHER, SELFPAY ==
[2023-06-13 13:59] VITALS: BP 141/91; PULSE 80; RESP 24; TEMP 36.4; O2SAT 98; BMI 28.8
[2023-06-13 14:17] VITALS: BP 141/91; PULSE 85; O2SAT 98
--- NOTE | 2023-06-13 14:19 | CT_ITS ---
FINAL REPORT TECHNIQUE: After the administration of intravenous contrast, axial images were obtained through the abdomen and pelvis by computed tomography. The study was performed with techniques to keep radiation dose as low as reasonably achievable, (ALARA). Individual dose reduction techniques using automated exposure control or adjustment of mA and/or kV according to the patient's size were employed. CLINICAL HISTORY: Lower quadrant abdominal pain FINDINGS: Abdomen: The lung bases are clear. The liver parenchyma is homogeneous. The gallbladder is present. The spleen, pancreas, adrenals and kidneys appear unremarkable. The aorta is normal in caliber. There is no free fluid or adenopathy. Pelvis: The appendix is not identified. The uterus is present and lies eccentric to the left. There is fluid within loops of bowel in the right hemipelvis. There are scattered diverticula in the sigmoid colon. The urinary bladder is unremarkable. There is no free fluid or adenopathy. IMPRESSION: Sigmoid diverticulosis without evidence of diverticulitis. Reviewed, Interpreted and Dictated by Hmalet Portillo MD Transcribed by Kiana Armstrong Authenticated and [facility]
--- NOTE | 2023-06-13 14:21 | ED_ITS ---
Discharge Plan Disposition Patient Disposition: Still a Patient Condition: Good Chief Complaint: Abdominal Pain Prescriptions Prescriptions: No Action fluoxetine 40 mg capsule 40 mg PO DAILY Qty: 30 1RF hydroxyzine HCl 25 mg tablet 25 mg PO TID Qty: 90 0RF buspirone 10 mg tablet 10 mg PO BID Qty: 60 1RF levonorgestrel-ethinyl estrad [Aviane] 0.1-20 mg-mcg tablet 1 tab PO DAILY Referrals Follow up/Referrals: Guru Talamantes MD [Primary Care Provider] - See instructions Instructions Patient Instructions: DI for Acute Abdominal Pain Discharge ED Provider: Clarita Woods General Adult HPI General Chief complaint: Abdominal Pain Stated complaint: abd pain, vomiting, diarrhea Time Seen by Provider: 06/13/23 14:15 History of Present Illness HPI narrative: Patient has a PMHx significant for severe anxiety depression who presents to the ED with complaints of abdominal pain. Patient notes that 3 weeks ago, she started experiencing some intermittent abdominal pain, but it self resolved. On Monday, she came into the ED with complaints of chest pain, abdominal pain, shortness of breath and workup was all negative, and the patient was diagnosed with a panic attack. Patient did not get a CT scan at that time. This morning, patient notes that she has been having progressively worsening cramping abdominal pain in the lower quadrant that was initially intermittent, but now constant patient Dors is 3 episodes of nausea vomiting, all nonbloody. Patient notes that her last menstrual cycle was in May. Patient notes that she is on control. Related Data Home Medications Medication Instructions Recorded Confirmed levonorgestrel-ethinyl estradiol 1 tab PO DAILY Control 02/13/23 06/09/23 0.1 mg-20 mcg tablet (Aviane) Previous Rx's Medication Instructions Recorded fluoxetine 40 mg capsule 40 mg PO DAILY Depression #30 caps 05/05/23 hydroxyzine HCl 25 mg tablet 25 mg PO TID Anxiety #90 tabs 05/05/23 buspirone 10 mg tablet 10 mg PO BID #60 tabs 06/12/23 Allergies Allergy/AdvReac Type Severity Reaction Status Date / Time No Known Allergies Allergy Verified 05/10/23 13:36 [facility] Disclaimer: The information contained in this section may have been updated after the patient was seen, as this information can be updated by other users. Surgical History No history of previous surgery Family History Other FHx: mental illness Substance abuse Social History Smoking Status: Current every day smoker tobacco type: e-cigarettes alcohol intake: never substance use type: denies use current occupational status: other Travel in the last 8 weeks: None number of children: 0 ROS Obtained: Yes All systems reviewed & no additional complaints except as documented Physical Exam General General appearance: alert and in no apparent distress Head Head exam: atraumatic, normocephalic and normal inspection Eye Eye exam: Present normal appearance, PERRL and EOMI; Absent scleral icterus or nystagmus ENT ENT exam: Present normal exam, mucous membranes moist and normal external ear exam Neck Neck exam: Present normal inspection, full ROM and trachea midline Chest Chest inspection: Present normal inspection and symmetric chest wall rise; Absent tenderness Respiratory Respiratory exam: Present normal lung sounds bilaterally; Absent respiratory distress, wheezes or accessory muscle use Cardiovascular Cardiovascular exam: Present regular rate, normal rhythm and normal heart sounds Abdominal Exam Abdominal exam: Present soft and tenderness; Absent distention, guarding, rebound, rigidity, trauma, ascites or pulsatile mass Extremities Exam Extremities exam: Present normal inspection and full ROM; Absent tenderness Back Exam Back exam: Present normal inspection and full ROM; Absent tenderness Neurological Exam Neurological exam: Present alert, oriented X3 and normal gait; Absent motor sensory deficit Psychiatric Psychiatric exam: Present normal affect and normal mood Skin Skin exam: Present warm, dry and normal color Medical Decision Making Medical Records Medical records reviewed: Yes I reviewed the patient's medical records. Nolberto Inquiry Pt receiving controlled substance: No Vital Signs: 06/13/23 13:59 06/13/23 14:17 06/13/23 14:40 Temperature 97.6 F Temperature Source Oral Pulse Rate 85 64 Pulse Rate [Radial] 80 Respiratory Rate 24 Blood Pressure 141/91 H 119/81 Blood Pressure [Right Arm] 141/91 H Blood Pressure Mean 101 93 Blood Pressure Mean [Right Arm] 107 Blood Pressure Source [Right Arm] Automatic Cuff Blood Pressure Position [Right Arm] Sitting 02 Sat by Pulse Oximetry 98 98 100 Oxygen Delivery Method Room Air Room Air Room Air Lab Data Lab results reviewed: Yes I reviewed the patient's lab results. Lab Results 06/13/23 14:25: WBC 7.1, RBC 4.92, Hgb 13.5, Hct 39.2, MCV 79.7 L, MCH 27.4, MCHC 34.4, RDW 15.0, Plt Count 310, MPV 9.0, Neut % (Auto) 65.7, Lymph % (Auto) 27.0, Angelina % (Auto) 6.4, Eos % (Auto) 0.6, Baso % (Auto) 0.4, Neut # (Auto) 4.7, Lymph # (Auto) 1.9, Angelina # (Auto) 0.5, Eos # (Auto) 0.0, Baso # (Auto) 0.0, So dium 139, Potassium 4.0, Chloride 108 H, Carbon Dioxide 22, Anion Gap 13.0, BUN 9, Creatinine 0.60, Estimated Creat Clear 172, Estimated GFR 125, Est GFR ( Amer) 151, Glucose 112 H, Calcium 9.0, Total Bilirubin 0.5, AST 29, ALT 27, Alkaline Phosphatase 94, Total Protein 8.4 H, Albumin 4.5, Globulin 3.9 H, Albumin/Globulin Ratio 1.2, Lipase 31 06/13/23 14:25 06/13/23 14:25 Orders (Tests/Meds): ED MEDICATIONS Generic Name Dose Route Start Last Admin Trade Name Freq PRN Reason Stop Dose Admin Sodium Chloride 1,000 mls @ 999 mls/hr 06/13/23 14:30 06/13/23 14:32 Sod Chlor 0.9% 1000ml Bag IV 06/13/23 15:30 999 mls/hr .Q1H1M HEYDI Administration Sodium Chloride 10 ml 06/13/23 14:32 Sodium Chloride 0.9% 10ml Flush Syringe IV 07/13/23 14:31 NEEDED PRN Maintain IV Site Discontinued Medications Generic Name Dose Route Start Last Admin Trade Name Freq PRN Reason Stop Dose Admin Morphine Sulfate 4 mg 06/13/23 14:19 06/13/23 14:32 Morphine 4mg/Ml Syringe IV 06/13/23 14:20 4 mg ONCE ONE Administration Ondansetron HCl 4 mg 06/13/23 14:19 06/13/23 14:32 Ondansetron 4mg/2ml Vial IV 06/13/23 14:20 4 mg ONCE ONE Administration ORDERS Category Date Time Status CT abdomen pelvis w con Stat Cat Scan 06/13/23 14:19 Ordered CBC w/Auto Diff [Complete Blood Count Auto Diff] Stat Lab 06/13/23 14:25 Completed CMP [Comprehensive Metabolic Panel] Stat Lab 06/13/23 14:25 Completed HCG Qualitative, Serum Stat Lab 06/13/23 14:25 Received Lipase Stat Lab 06/13/23 14:25 Completed Rapid PCR Covid and Flu A/B Stat Lab 06/13/23 15:25 Received Urinalysis and Microscopic Stat Lab 06/13/23 15:10 Received Medical Decision Narrative: In summary, Patient has a PMHx significant for severe anxiety depression who presents to the ED with complaints of abdominal pain. Patient notes that 3 weeks ago, she started experiencing some intermittent abdominal pain, but it self resolved. On Monday, she came into the ED with complaints of chest pain, abdominal pain, shortness of breath and workup was all negative, and the patient was diagnosed with a panic attack. Patient did not get a CT scan at that time. This morning, patient notes that she has been having progressively worsening cramping abdominal pain in the lower quadrant that was initially intermittent, but now constant patient Dors is 3 episodes of nausea vomiting, all nonbloody. Patient notes that her last menstrual cycle was in May. Patient notes that she is on control. Physical examination was notable for tenderness palpation in the lower quadrants of the abdomen, but the abdomen is soft, nondistended. The DDx includes, but is not limited to, viral gastroenteritis, pancreatitis, acute biliary process such as gallstones, gastritis vs ulcers, cholecystitis, choledocholithiasis, acute cholangitis, appendicitis, diverticulitis, colitis, other acute abdominal infection or abscess, malignancy, bowel perforation, bowel obstruction, cystitis vs pyelonephritis, nephrolithiasis, vs intraabdominal hemorrhage, strangulated versus incarcerated hernia. All of these have been considered, however ruling out the most morbid conditions drove my clinical assessment and thus the following laboratory and/or radiographic evaluation was conducted to the appropriate extent based on history and physical examination. All ordered laboratory studies independently reviewed and interpreted by myself and pertinent for: - CBC was unremarkable for any actionable leukocytosis, anemia, or thrombocytopenia. - CMP was unremarkable for any actionable electrolyte derangement, elevated creatinine, or transaminitis. - Lipase WNL - UA pending at handoff X-ray/CT/US studies independently reviewed and interpreted by myself and notable for: CT AP pending at handoff Interventions/Medications Received in the ED: 1L IVF, 4mg IV zofran, 4mg IV morphine At this time, patient's care was transferred to the incoming Dr. Rothman. Patient's disposition is pending remainder of workup or the recommendations of the consulted service. Clarita Woods MD Emergency Medicine Critical Care Critical Care Time Critical Care Time: No
[2023-06-13 14:30] VITALS: BMI 26.3
[2023-06-13] MEDS: 0.9 % SODIUM CHLORIDE 1000ML 1,000 ML 999 ML IV (14:32)
[2023-06-13] MEDS: MORPHINE 4MG/ML SYRINGE 4 MG IV (14:32)
[2023-06-13] MEDS: ONDANSETRON 4MG/2ML VIAL 4 MG IV (14:32)
[2023-06-13 14:40] VITALS: BP 119/81; PULSE 64; O2SAT 100
[2023-06-13 14:43] LABS: Basophils % 0.4 % (0.1-2.0); Chloride 108 mmol/L (98-107); Eosinophils % 0.6 % (0.1-12.0); Hematocrit 39.2 % (37.0-47.0); Hemoglobin 13.5 g/dL (12.2-16.2); Lymphocytes # 1.9 K/mm3 (0.7-4.5); Mean Corpuscular HGB Conc 34.4 g/dL (31.8-35.4); Mean Corpuscular Hemoglobin 27.4 pg (27.0-31.2); Mean Corpuscular Volume 79.7 fl (81-99); Monocytes # 0.5 K/mm3 (0.1-1.0); Monocytes % 6.4 % (1.7-9.3); Neutrophils # 4.7 K/mm3 (1.8-7.8); Neutrophils % 65.7 % (37.0-80.0); Platelet Count 310 K/mm3 (142-424); Red Blood Count 4.92 M/mm3 (4.20-5.40); Sodium 139 mmol/L (136-145); White Blood Count 7.1 K/mm3 (4.8-10.8)
[2023-06-13 14:46] LABS: Alanine Aminotransferase 27 U/L (12-78); Albumin Level 4.5 g/dl (3.5-5.0); Albumin/Globulin Ratio 1.2 (1.1-1.8); Alkaline Phosphatase 94 U/L (38-126); Aspartate Amino Transferase 29 U/L (14-36); Bilirubin,Total 0.5 mg/dl (0.2-1.3); Blood Urea Nitrogen 9 mg/dl (7-17); Carbon Dioxide 22 mmol/L (22.0-30.0); Creatinine Clearance Estimated 172 mL/min (50-200); Estimated Glomerular Filt Rate 125 ml/min (>60); GFR (African American) 151 ML/MIN (>60); Globulin 3.9 g/dL (1.3-3.2); Glucose 112 mg/dl (74-100); Lipase 31 U/L (23-300); Total Protein,Serum 8.4 g/dl (6.3-8.2)
[2023-06-13 15:00] VITALS: BP 124/79; PULSE 69; O2SAT 96
[2023-06-13 15:28] LABS: Coronavirus 19, PCR Not Detected (NotDetected); Influenza A, PCR Not Detected (NotDetected); Influenza B, PCR Not Detected (NotDetected)
[2023-06-13 15:28] LABS: Microscopic, Urine URINE MICROSCOPIC (MICROSCOPIC)
[2023-06-13 15:30] LABS: Appearance,Urine CLEAR (Clear); Bilirubin,Urine Negative (Negative); Blood, Urine Negative (Negative); Color,Urine YELLOW (Yellow); Glucose,Urine (UA) Negative (Negative); Ketones,Urine 1+ (Negative); Leukocyte Esterase,Urine 1+ (Negative); Nitrate,Urine Negative (Negative); Protein,Urine Negative (Negative); Urobilinogen,Urine 0.2 EU/dl (0.2)
[2023-06-13 15:42] LABS: HCG Qualitative, Serum Negative (Negative)
--- NOTE | 2023-06-13 15:52 | PC.NURSE ---
PT TO CT
--- NOTE | 2023-06-13 15:59 | PC.NURSE ---
transported to CT scan via rose grader and wheelchair
[2023-06-13 16:03] LABS: Bacteria,Urine Trace /lpf
--- NOTE | 2023-06-13 16:03 | PC.NURSE ---
PT RETURNED FROM CT
[2023-06-13 16:04] LABS: WBC,Urine Occasional #/hpf (0-3)
[2023-06-13] MEDS: SODIUM CHLORIDE 0.9% 10ML SYR (RAD ONLY) 10 ML IV (16:05)
[2023-06-13] MEDS: IOPAMIDOL-370 (76%);100ML BOTTLE 75 ML IV (16:05)
[2023-06-13] MEDS: KETOROLAC 30MG/ML VIAL 30 MG IV (16:35)
[2023-06-13] MEDS: ACETAMINOPHEN 1,000MG/100ML VIAL 1000 MG IV (16:35)
[2023-06-13] MEDS: SODIUM CHLORIDE 0.9% 25ML BAG 25 ML IV (16:36)
[2023-06-13] MEDS: PROMETHAZINE HCL 25MG/ML 1ML VIAL 25 MG IV (16:36)
--- NOTE | 2023-06-13 17:11 | PC.NURSE ---
pt given sprite for po challenge and informed patient ER MD will come discuss care
[2023-06-13 17:59] VITALS: BP 122/69; PULSE 64; RESP 20; TEMP 36.7; O2SAT 99
--- NOTE | 2023-06-20 10:38 | PC.NURSE ---
urine results show mixed urogenital anat, aware, contaminated, no further action
== END 2023-06-13 18:01 | disposition home or self-care (01) ==
PROVIDERS: Emergency Medicine; Emergency Provider Emergency Medicine; PCP Internal Medicine Adolescent Medicine
DX: K57.30 Diverticulosis of large intestine without perforation or abscess without bleeding (principal); R10.9 Unspecified abdominal pain; R11.2 Nausea with vomiting, unspecified; F17.290 Nicotine dependence, other tobacco product, uncomplicated; Z11.52 Encounter for screening for COVID-19
CPT/HCPCS: 74177; 80053; 81001; 83690; 84703; 85025; 87086; 87636; 96361; 96374; 96375; 99285; J0131; J2405; Q9967

== ENCOUNTER 2023-06-14 07:40 | Emergency (ER) | payer OTHER, SELFPAY ==
[2023-06-14] VITALS (7 sets, daily range): BP systolic 101–140; BP diastolic 50–79; PULSE 59–82; RESP 15–16; TEMP 36.6–36.7; O2SAT 96–99; BMI 28.8; BMI 26.6
--- NOTE | 2023-06-14 07:46 | HMH.EDGENADL ---
Discharge Plan Disposition Patient Disposition: Home, Self-Care Condition: Good Prescriptions Prescriptions: No Action fluoxetine 40 mg capsule 40 mg PO DAILY Qty: 30 1RF hydroxyzine HCl 25 mg tablet 25 mg PO TID Qty: 90 0RF buspirone 10 mg tablet 10 mg PO BID Qty: 60 1RF promethazine 25 mg tablet 25 mg PO TID PRN (Reason: vomting) Qty: 12 0RF levonorgestrel-ethinyl estrad [Aviane] 0.1-20 mg-mcg tablet 1 tab PO DAILY Referrals Follow up/Referrals: Adrianna Lopez APRN [Primary Care Provider] - See instructions Clinical Impressions Clinical Impression: Cannabinoid hyperemesis syndrome Instructions Patient Instructions: DI for Diarrhea and Traveler's Diarrhea -- Adult, DI for Diarrhea and Traveler's Diarrhea -- Child, DI for Nausea -- Adult, DI for Nausea -- Child, Cannabinoid Hyperemesis Syndrome, DI for Cannabinoid Hyperemesis Syndrome Discharge ED Provider: Clarita Woods General Adult HPI General Chief complaint: Nausea/Vomiting/Diarrhea Stated complaint: Vomiting, pain in abdomin Time Seen by Provider: 06/14/23 07:46 History of Present Illness HPI narrative: Patient has a PMHx significant for severe anxiety depression who presents to the ED with complaints of abdominal pain. Patient notes that 3 weeks ago, she started experiencing some intermittent abdominal pain, but it self resolved. On Monday, she came into the ED with complaints of chest pain, abdominal pain, shortness of breath and workup was all negative, and the patient was diagnosed with a panic attack. Patient did not get a CT scan at that time. Yesterday morning, patient presented to the ED with complaints of progressively worsening cramping abdominal pain in the lower quadrant that was initially intermittent, but then constant, as well as handful of episodes of nausea vomiting, all nonbloody. Patient had a completely benign workup yesterday including all labs and CTAP that showed diverticulosis, but no diverticulitis. Patient passed PO challenge and was discharged with phenergan. This morning, patient represented to the ED with complaints of abdominal cramping, nausea, vomiting. Patient notes she felt fantastic yesterday evening after being discharged. Patient notes that her last menstrual cycle was in May. Patient notes that she is on control. Negative HCG. Upon further questioning given that this is patient's third ER visit in 1 week for same exact complaints with 2 negative workups, patient admitted to daily marijuana usage, noting that she smokes marijuana 2-3 times a day. Related Data Home Medications Medication Instructions Recorded Confirmed levonorgestrel-ethinyl estradiol 1 tab PO DAILY Control 02/13/23 06/09/23 0.1 mg-20 mcg tablet (Aviane) Previous Rx's Medication Instructions Recorded fluoxetine 40 mg capsule 40 mg PO DAILY Depression #30 caps 05/05/23 hydroxyzine HCl 25 mg tablet 25 mg PO TID Anxiety #90 tabs 05/05/23 buspirone 10 mg tablet 10 mg PO BID #60 tabs 06/12/23 promethazine 25 mg tablet 25 mg PO TID PRN vomting #12 tabs 06/13/23 Allergies Allergy/AdvReac Type Severity Reaction Status Date / Time No Known Allergies Allergy Verified 05/10/23 13:36 [facility] Disclaimer: The information contained in this section may have been updated after the patient was seen, as this information can be updated by other users. Surgical History No history of previous surgery Family History Other FHx: mental illness Substance abuse Social History Smoking Status: Current every day smoker tobacco type: e-cigarettes alcohol intake: never substance use type: denies use current occupational status: other Travel in the last 8 weeks: None number of children: 0 ROS Obtained: Yes All systems reviewed & no addition
--- NOTE | 2023-06-14 08:01 | ECG_ITS ---
APPROVED REPORT Exam: Resting ECG HR:79 bpm ECG Measurements Heart Rate 79 AXES MN 165 P 63 QRSd 83 QRS 83 QT 367 T 42 QTc 402 Conclusion SINUS RHYTHM MODERATE T-WAVE ABNORMALITY, CONSIDER ANTERIOR ISCHEMIA [-0.1+ mV T-WAVE IN V3/V4] ABNORMAL ECG UNCONFIRMED REPORT Electronically signed by : Guru Talamantes MD 06/14/2023 17:33:01
[2023-06-14 08:07] LABS: Barbiturates Screen,Urine Negative ng/ml (<200)
[2023-06-14 08:08] LABS: Amphetamine/Metha Screen,Urine Negative ng/ml (<1000); Benzodiazepines Screen,Urine Negative ng/ml (<200)
[2023-06-14 08:09] LABS: Cocaine Screen,Urine Negative ng/ml (<300); Methadone Screen,Urine Negative ng/ml (<300)
[2023-06-14 08:10] LABS: Cannabinoid Screen,Urine Positive ng/ml (<50)
[2023-06-14 08:11] LABS: Opiate Screen,Urine Negative ng/ml (<300)
[2023-06-14 08:32] LABS: Phencyclidine Screen,Urine Negative ng/ml (<25)
== END 2023-06-14 10:42 | disposition home or self-care (01) ==
PROVIDERS: Emergency Provider Emergency Medicine; PCP Nurse Practitioner Family
DX: R10.9 Unspecified abdominal pain (principal); R11.10 Vomiting, unspecified; F12.988 Cannabis use, unspecified with other cannabis-induced disorder; F17.290 Nicotine dependence, other tobacco product, uncomplicated
CPT/HCPCS: 80305; 93005; 96372; 99283; J1790

== ENCOUNTER 2023-06-16 13:38 | Outpatient (CLI) | payer OTHER, SELFPAY ==
[2023-06-16 13:41] VITALS: BMI 29.6
[2023-06-16 14:00] VITALS: BP 147/69; PULSE 69; RESP 16; TEMP 36.5
[2023-06-16 14:12] LABS: Microscopic, Urine URINE MICROSCOPIC (MICROSCOPIC)
[2023-06-16 14:15] LABS: Basophils % 0.8 % (0.1-2.0); Eosinophils % 0.4 % (0.1-12.0); Hematocrit 40.5 % (37.0-47.0); Hemoglobin 13.5 g/dL (12.2-16.2); Lymphocytes # 1.4 K/mm3 (0.7-4.5); Lymphocytes % 28.6 % (10-50); Mean Corpuscular HGB Conc 33.2 g/dL (31.8-35.4); Mean Corpuscular Hemoglobin 27.4 pg (27.0-31.2); Mean Corpuscular Volume 82.6 fl (81-99); Mean Platelet Volume 9.3 fl (7.4-10.4); Monocytes # 0.4 K/mm3 (0.1-1.0); Monocytes % 7.4 % (1.7-9.3); Neutrophils # 3.2 K/mm3 (1.8-7.8); Neutrophils % 62.9 % (37.0-80.0); Platelet Count 290 K/mm3 (142-424); Red Blood Count 4.91 M/mm3 (4.20-5.40); Red Cell Distribution Width 15.2 % (11.5-17.5)
[2023-06-16 14:20] LABS: Appearance,Urine SL CLOUDY (Clear); Bilirubin,Urine Negative (Negative); Blood, Urine 1+ (Negative); Color,Urine YELLOW (Yellow); Glucose,Urine (UA) Negative (Negative); Ketones,Urine 1+ (Negative); Leukocyte Esterase,Urine 2+ (Negative); Nitrate,Urine Negative (Negative); Protein,Urine Negative (Negative); Specific Gravity, Urine 1.015 (1.005-1.030); Urobilinogen,Urine 0.2 EU/dl (0.2)
[2023-06-16 14:30] VITALS: BP 141/77; PULSE 78; RESP 16
[2023-06-16 14:33] LABS: Bacteria,Urine Trace /lpf
[2023-06-16 14:35] LABS: Chloride 101 mmol/L (98-107)
[2023-06-16 14:36] LABS: Potassium 3.7 mmoL/L (3.5-5.1); Sodium 137 mmol/L (136-145)
[2023-06-16 14:38] LABS: Alanine Aminotransferase 26 U/L (12-78); Albumin Level 4.6 g/dl (3.5-5.0); Albumin/Globulin Ratio 1.1 (1.1-1.8); Alkaline Phosphatase 77 U/L (38-126); Anion Gap 14.7 mEq/L (5-15); Aspartate Amino Transferase 35 U/L (14-36); Bilirubin,Total 0.7 mg/dl (0.2-1.3); Blood Urea Nitrogen 10 mg/dl (7-17); Carbon Dioxide 25 mmol/L (22.0-30.0); Creatinine Clearance Estimated 171 mL/min (50-200); Estimated Glomerular Filt Rate 125 ml/min (>60); GFR (African American) 151 ML/MIN (>60); Globulin 4.2 g/dL (1.3-3.2); Total Protein,Serum 8.8 g/dl (6.3-8.2)
[2023-06-16 14:39] LABS: Calcium 8.7 mg/dl (8.4-10.2); Glucose 92 mg/dl (74-100)
[2023-06-16 14:50] VITALS: BP 117/70; PULSE 81; RESP 16
== END 2023-06-16 14:55 | disposition home or self-care (01) ==
LOC: INF 13:40
PROVIDERS: PCP Nurse Practitioner Family; Visit Provider Nurse Practitioner Family
DX: E86.0 Dehydration (principal); R10.9 Unspecified abdominal pain
CPT/HCPCS: 80053; 81001; 85025; 87086; 96360; 96375; J2405

== ENCOUNTER 2023-11-09 09:50 | Outpatient (CLI) | payer OTHER, SELFPAY ==
--- NOTE | 2023-11-09 10:00 | US_ITS ---
FINAL REPORT CLINICAL HISTORY: RUQ PAIN,ABDOMINAL TENDERNESS COMPARISON: None FINDINGS: Sonographic images of the right upper quadrant were obtained. The pancreas is partially obscured.The liver has an unremarkable appearance.The gallbladder appears normal without evidence of gallstones.There is no evidence of biliary ductal dilatation.The common duct measures 3 mm. Limited images of the right kidney are unremarkable. IMPRESSION: Unremarkable right upper quadrant ultrasound. Reviewed, Interpreted and Dictated by Kwesi Steele III, MD Transcribed by Yessi Ventura Authenticated and [facility]
== END 2023-11-09 23:59 | disposition home or self-care (01) ==
LOC: RAD 09:50
PROVIDERS: PCP Nurse Practitioner Family; Visit Provider Nurse Practitioner Family
DX: R10.11 Right upper quadrant pain (principal)
CPT/HCPCS: 76705

== ENCOUNTER 2023-12-13 10:24 | Outpatient (CLI) | payer OTHER, SELFPAY ==
--- NOTE | 2023-12-13 10:31 | NM_ITS ---
FINAL REPORT CLINICAL HISTORY: DYSPEPSIA; RUQ PAIN 11:00AM 7.81 MCI TC CHOLETEC 1.4 MCG CCK NO PAIN WITH CCK COMPARISON: None FINDINGS: Sequential anterior projection images of the abdomen were obtained after the intravenous injection of 7.81 mCi technetium 99m Choletec. There is normal uptake of radiotracer by the liver. The bile ducts are visualized by 5 minutes. Gallbladder activity is seen by 5 minutes. Bowel activity is noted by 30 minutes. After 1 hour, 1.4 ?g of CCK was injected intravenously for calculation of gallbladder ejection fraction. The gallbladder ejection fraction is 88%, which is within normal limits. IMPRESSION: No evidence of cystic duct or bile duct obstruction. Normal gallbladder ejection fraction of 88%. Reviewed, Interpreted and Dictated by Kwesi Steele III, MD Transcribed by Yessi Ventura Authenticated and . [facility]
[2023-12-13] MEDS: SINCALIDE 1.4 MCG in 0.9 % SODIUM CHLORIDE 50 ML 100 MCG IV (12:49)
[2023-12-13] MEDS: SODIUM CHLORIDE 0.9% 10ML SYR (RAD ONLY) 10 ML IV (12:49)
[2023-12-13] MEDS: ISOTOPE CHOLETECH;1 DOSE (UP TO 15 MCI) IV (12:49)
== END 2023-12-13 23:59 | disposition home or self-care (01) ==
LOC: RAD 10:25
PROVIDERS: PCP Nurse Practitioner Family; Visit Provider Nurse Practitioner Family
DX: R10.13 Epigastric pain (principal); R10.11 Right upper quadrant pain; R10.811 Right upper quadrant abdominal tenderness
CPT/HCPCS: 78227; A9537; J2805

== ENCOUNTER 2023-12-20 10:19 | Outpatient (CLI) | payer OTHER, SELFPAY ==
--- NOTE | 2023-12-20 10:20 | CT_ITS ---
FINAL REPORT TECHNIQUE: After the administration of IV contrast, axial images through the abdomen and pelvis was performed by computed tomography. Oral contrast was given. Sagittal and coronal reformatted images were obtained. This study was performed with techniques to keep radiation doses as low as reasonably achievable (ALARA). Individualized dose reduction techniques using automated exposure control or adjustment of mA and/or kV according to the patient's size were employed. CLINICAL HISTORY: abdominal pain feels like she needs to pee , abdomen cramps since July COMPARISON: 06/13/2023 FINDINGS: Abdomen: No acute density is seen within the lung bases. The gallbladder is unremarkable. Solid abdominal organs are unremarkable. No bowel obstruction is present. There is no free air. No fluid collection is seen. There is mild adenopathy of the mesentery, likely mesenteric adenitis or panniculitis. Pelvis: The appendix is not identified but there are no secondary findings to suggest appendicitis. The uterus and ovaries are normal. No bowel wall thickening is present. There is no free fluid. No pelvic mass is seen. IMPRESSION: No acute findings. Reviewed, Interpreted and Dictated by Trevor Thomason MD Transcribed by Kiana Armstrong Authenticated and [facility]
[2023-12-20] MEDS: BARIUM SULFATE(READI-CAT2);450ML BOTTLE 450 ML PO (10:53)
[2023-12-20] MEDS: SODIUM CHLORIDE 0.9% 10ML SYR (RAD ONLY) 10 ML IV (10:53)
[2023-12-20] MEDS: IOPAMIDOL-370 (76%);100ML BOTTLE 75 ML IV (10:53)
== END 2023-12-20 23:59 | disposition home or self-care (01) ==
LOC: RAD 10:20
PROVIDERS: PCP Physician Assistant; Visit Provider Surgery
DX: R10.11 Right upper quadrant pain (principal)
CPT/HCPCS: 74177; Q9967

== ENCOUNTER 2024-05-06 14:39 | Emergency (ER) | payer OTHER, SELFPAY ==
[2024-05-06 14:50] VITALS: BP 125/76; PULSE 127; RESP 20; TEMP 36.6; O2SAT 99; BMI 24.4
--- NOTE | 2024-05-06 15:04 | ED_ITS ---
Discharge Plan Disposition Patient Disposition: Home, Self-Care Condition: Good Prescriptions Prescriptions: New amoxicillin 500 mg capsule 500 mg PO BID 10 Days Qty: 20 0RF benzonatate 100 mg capsule 100 mg PO TID PRN (Reason: cough) Qty: 30 0RF methylprednisolone [Medrol (Jones)] 4 mg tablets,dose pack See Rx Instructions .Route .COMPLEX 6 Days Qty: 21 0RF Rx Instructions: taper pack; ondansetron 4 mg tablet,disintegrating 4 mg PO Q8H PRN (Reason: nausea and vomiting) Qty: 10 0RF guaifenesin [Mucinex] 600 mg tablet extended release 12hr 600 mg PO BID PRN (Reason: cough) Qty: 20 0RF No Action levonorgestrel-ethinyl estrad [Aviane] 0.1-20 mg-mcg tablet 1 tab PO DAILY trazodone 50 mg tablet 50 mg PO HS Patient Comments: TAKE 1 TABLET BY MOUTH ONCE DAILY AT NIGHT AT BEDTIME DIRECTED lamotrigine 25 mg tablet 25 mg PO DAILY Patient Comments: TAKE 1 TABLET BY MOUTH AT BEDTIME FOR 14 DAYS THEN INCREASE TO 1 TABLET TWICE DAILY Referrals Follow up/Referrals: Adrianna Lopez APRN [Primary Care Provider] - See instructions Activity Restrictions/Add. Instructions Additional Instructions/Restrictions: *Monitor Temp, Over the counter Motrin or Tylenol as directed/as needed Tylenol every 4 hours and Motrin every 6 hours (as long as your family doctor has told you that you can take it) for fever or pain. and straight to ER if unable to lower temp less than 101.0 after medication given *Warm salt water gargles may help to soothe the throat *Throat Lozenges? *Warm fluids like tea with honey may help to soothe the throat? *Sleep elevated *Humidifier/Vaporizer Your throat swab was sent for culture. Those results are typically sent to your primary care. Be sure to follow up in 2-3 days with your family doctor/primary care physician if no improvement so they can review those result and treat if necessary. If you don?t have a primary care doctor, I recommend you get one but in the mean time, you will have to return to a walk in clinic Follow up IMMEDIATELY for new or worsening symptoms or no Noticeable improvement over the next 48-72 hours. 911 for difficulty breathing or swallowing Clinical Impressions Clinical Impression: Acute bacterial tonsillitis Instructions Patient Instructions: Sore Throat, Amoxicillin, Methylprednisolone Print Language Print Language: Bulgarian Discharge ED Provider[place] Geri [place] [facility] [place] General Stated complaint: fever, body aches, sore throat, headache Mode of Arrival: Ambulatory Source of Information: Patient and Parent(s) Limitations: No Limitations Time Seen by Provider: 05/06/24 15:04 Description of Symptoms (Recalled from Triage Doc. by RN): PATIENT C/O HEADACHE, SORE THROAT, BODY ACHES, AND FEELING FEVERISH THAT STARTED APPROX 36 HOURS AGO. PATIENT ALSO STATES SHE VOMITED 4 TIMES THIS MORNING HEENT Symptoms (Recalled from RN notes): Yes Resp Symptoms (Recalled from RN notes): No Skin Symptoms (Recalled from RN notes): No MS Symptoms (Recalled from RN notes): No Functional Status (Recalled from RN notes): WNL History of Present Illness Provider Complaint: Patient states that she started feeling bad a few days ago States that she has been having sore throat, cough, body aches, chills, headache and this morning she has vomited several times so she came in to get checked States that her throat is hurting bad when she swallows and feels swollen Related Data Home Medications ?Medication ?Instructions ?Recorded ?Confirmed levonorgestrel-ethinyl estradiol 1 tab PO DAILY Control 02/13/23 05/06/24 0.1 mg-20 mcg tablet (Aviane) lamotrigine 25 mg tablet 25 mg PO DAILY 05/06/24 05/06/24 trazodone 50 mg tablet 50 mg PO HS 05/06/24 05/06/24 Previous Rx's ?Medication ?Instructions ?Recorded amoxicillin 500 mg capsule 500 mg PO BID 10 days #20 caps 05/06/24 benzonatate 100 mg capsule 100 mg PO TID PRN cough #30 caps 05/06/24 guaifenesin 600 mg tablet, 600 mg PO BID PRN cough #20 tabs 05/06/24 extended release 12 hr (Mucinex) methylprednisolone 4 mg tablets in See Rx Instructions .Route 05/06/24 a dose pack (Medrol (Jones)) .COMPLEX 6 days #21 tabs ondansetron 4 mg disintegrating 4 mg PO Q8H PRN nausea and 05/06/24 tablet vomiting #10 tabs Allergies Allergy/AdvReac Type Severity Reaction Status Date / Time No Known Allergies Allergy Verified 04/16/24 10:49 Worker's Comp Is this a Worker's Comp case?: No [facility] Disclaimer: The information contained in this section may have been updated after the patient was seen, as this information can be updated by other users. Medical History Chest pain Heart palpitations Diverticulosis Anxiety and depression Family History Other FHx: mental illness Substance abuse Social History Smoking Status: Current every day smoker tobacco type: e-cigarettes alcohol intake: current alcohol intake frequency: other substance use type: marijuana current occupational status: other Travel in the last 8 weeks: None number of children: 0 ROS Obtained: Yes All systems reviewed & no additional complaints except as documented and Yes Systems reviewed as appropriate & no additional complaints except as documented Constitutional Constitutional: Reports system reviewed and no additional complaints, except as documented and Reports as per HPI ENT Ears, Nose, Mouth, and Throat: Reports system reviewed and no additional complaints, except as documented, Reports as per HPI, Reports nasal discharge and Reports sore throat Cardiovascular Cardiovascular: Reports system reviewed and no additional complaints, except as documented and Reports as per HPI Respiratory Respiratory: Reports system reviewed and no additional complaints, except as documented, Reports as per HPI and Reports cough Gastrointestinal Gastrointestingal: Reports system reviewed and no additional complaints, except as documented and as per HPI Musculoskeletal Musculoskeletal: Reports system reviewed and no additional complaints, except as documented and Reports as per HPI Physical Exam General General appearance: alert and in no apparent distress ENT ENT exam: Present mucous membranes moist Expanded ENT Exam Nose exam: Present sinus tenderness Throat exam: Present tonsillar erythema (small patchy like area noted) and tonsillomegaly Respiratory Respiratory exam: Present normal lung sounds bilaterally; Absent respiratory distress or wheezes Cardiovascular Cardiovascular exam: Present regular rate, normal rhythm and tachycardia Abdominal Exam Abdominal exam: Present soft and normal bowel sounds; Absent distention or tenderness Neurological Exam Neurological exam: Present alert, oriented X3 and normal gait Medical Decision Making Medical Records Screening: Per USPSTF and CDC recommendations, given the prevalence of disease in our region, it is our hospital?s policy to screen for HIV and viral Hepatitis for all patients aged 18 and over and those with ongoing risk factors. Nolberto Inquiry Pt receiving controlled substance: No Nolberto was queried for this patient: No Vital Signs: 05/06/24 14:50 Temperature 97.8 F Temperature Source Oral Pulse Rate [Left Brachial] 127 H Respiratory Rate 20 Blood Pressure [Left Arm] 125/76 Blood Pressure Mean [Left Arm] 92 Blood Pressure Source [Left Arm] Automatic Cuff Blood Pressure Position [Left Arm] Sitting 02 Sat by Pulse Oximetry 99 Oxygen Delivery Method Room Air Lab Data Lab results reviewed: Yes I reviewed the patient's lab results.
[2024-05-06 15:17] LABS: UTC Influenza A Antigen Negative (Negative); UTC Influenza B Antigen Negative (Negative)
[2024-05-06 15:19] LABS: UTC Strep Screen (Rapid) Negative (Negative)
[2024-05-06 15:23] VITALS: BP 125/76; PULSE 127; RESP 20; TEMP 36.6; O2SAT 99
== END 2024-05-06 15:27 | disposition home or self-care (01) ==
PROVIDERS: Emergency Provider Nurse Practitioner; PCP Nurse Practitioner Family
DX: J03.00 Acute streptococcal tonsillitis, unspecified (principal)
CPT/HCPCS: 87804; 87880; 99213; G0381

== ENCOUNTER 2024-05-10 13:11 | Emergency (ER) | payer OTHER, SELFPAY ==
[2024-05-10 13:20] VITALS: BP 124/82; PULSE 93; RESP 20; TEMP 36.6; O2SAT 98; BMI 24.3
--- NOTE | 2024-05-10 13:41 | EXP.UTC ---
Discharge Plan Disposition Patient Disposition: Home, Self-Care Prescriptions Prescriptions: New ciprofloxacin-dexamethasone 0.3-0.1 % drops,suspension 4 drp otic (ear) BID 7 Days Qty: 7.5 0RF No Action levonorgestrel-ethinyl estrad [Aviane] 0.1-20 mg-mcg tablet 1 tab PO DAILY lamotrigine 25 mg tablet 25 mg PO BID Patient Comments: TAKE 1 TABLET BY MOUTH AT BEDTIME FOR 14 DAYS THEN INCREASE TO 1 TABLET TWICE DAILY amoxicillin 500 mg capsule 500 mg PO BID 10 Days Qty: 20 0RF benzonatate 100 mg capsule 100 mg PO TID PRN (Reason: cough) Qty: 30 0RF methylprednisolone [Medrol (Jones)] 4 mg tablets,dose pack See Rx Instructions .Route .COMPLEX 6 Days Qty: 21 0RF Rx Instructions: taper pack; ondansetron 4 mg tablet,disintegrating 4 mg PO Q8H PRN (Reason: nausea and vomiting) Qty: 10 0RF guaifenesin [Mucinex] 600 mg tablet extended release 12hr 600 mg PO BID PRN (Reason: cough) Qty: 20 0RF Referrals Follow up/Referrals: Adrianna Lopez APRN [Primary Care Provider] - See instructions Activity Restrictions/Add. Instructions Additional Instructions/Restrictions: You was prescribed Amoxicillin previously twice daily, take remainder of amoxicillin 500mg every 8 hours to complete the course Use the drops as you was prescribed Follow up with you Family Doctor return if needed Straight to ER if any life threatening symptoms Clinical Impressions Clinical Impression: Otitis media Instructions Patient Instructions: Ciprofloxacin and Dexamethasone Otic, DI for Ear Pain-Adult Print Language Print Language: Greenlandic Discharge ED Provider: Geri Gibson [facility] General Stated complaint: Pain in R ear Mode of Arrival: Ambulatory Source of Information: Patient Limitations: No Limitations Time Seen by Provider: 05/10/24 13:41 Description of Symptoms (Recalled from Triage Doc. by RN): PATIENT C/O PAIN AND DECREASED HEARING TO RIGHT EAR X 2 DAYS HEENT Symptoms (Recalled from RN notes): Yes Resp Symptoms (Recalled from RN notes): No Skin Symptoms (Recalled from RN notes): No MS Symptoms (Recalled from RN notes): No Functional Status (Recalled from RN notes): WNL History of Present Illness Provider Complaint: Patient states that she has been on Amoxicillin for about 4 days for strep throat but 2 days ago her right ear started hurting and this morning it woke her up hurting so bad States that she tried some over the counter drops but it didnt help Related Data Home Medications ?Medication ?Instructions ?Recorded ?Confirmed levonorgestrel-ethinyl estradiol 1 tab PO DAILY Control 02/13/23 05/10/24 0.1 mg-20 mcg tablet (Aviane) lamotrigine 25 mg tablet 25 mg PO BID 05/06/24 05/10/24 Previous Rx's ?Medication ?Instructions ?Recorded amoxicillin 500 mg capsule 500 mg PO BID 10 days #20 caps 05/06/24 benzonatate 100 mg capsule 100 mg PO TID PRN cough #30 caps 05/06/24 guaifenesin 600 mg tablet, 600 mg PO BID PRN cough #20 tabs 05/06/24 extended release 12 hr (Mucinex) methylprednisolone 4 mg tablets in See Rx Instructions .Route 05/06/24 a dose pack ([employer] (Jones)) .COMPLEX 6 days #21 tabs ondansetron 4 mg disintegrating 4 mg PO Q8H PRN nausea and 05/06/24 tablet vomiting #10 tabs ciprofloxacin 0.3 %-dexamethasone 4 drp otic (ear) BID 7 days #7.5 mL 05/10/24 0.1 % ear drops,suspension Allergies Allergy/AdvReac Type Severity Reaction Status Date / Time No Known Allergies Allergy Verified 04/16/24 10:49 Worker's Comp Is this a Worker's Comp case?: No [facility] Disclaimer: The information contained in this section may have been updated after the patient was seen, as this information can be updated by other users. Medical History Chest pain Heart palpitations Diverticulosis Anxiety and depression Family History Other FHx: mental illness Substance abuse Social History Smoking Status: Current every day smoker tobacco type: e-cigarettes alcohol intake: current alcohol intake frequency: other substance use type: marijuana current occupational status: other Travel in the last 8 weeks: None number of children: 0 ROS Obtained: Yes All systems reviewed & no additional complaints except as documented and Yes Systems reviewed as appropriate & no additional complaints except as documented Constitutional Constitutional: Reports system reviewed and no additional complaints, except as documented ENT Ears, Nose, Mouth, and Throat: Reports system reviewed and no additional complaints, except as documented, Reports as per HPI and Reports otalgia Cardiovascular Cardiovascular: Reports system reviewed and no additional complaints, except as documented and Reports as per HPI Respiratory Respiratory: Reports system reviewed and no additional complaints, except as documented and Reports as per HPI Gastrointestinal Gastrointestingal: Reports system reviewed and no additional complaints, except as documented and as per HPI Physical Exam General General appearance: alert and in no apparent distress ENT ENT exam: Present mucous membranes moist Expanded ENT Exam TM/Canal exam: Right TM: erythema and bulging Nose exam: Absent sinus tenderness Throat exam: Present normal inspection Respiratory Respiratory exam: Present normal lung sounds bilaterally; Absent respiratory distress or wheezes Cardiovascular Cardiovascular exam: Present regular rate, normal rhythm and normal heart sounds Abdominal Exam Abdominal exam: Present soft and normal bowel sounds; Absent distention or tenderness Neurological Exam Neurological exam: Present alert, oriented X3 and normal gait Medical Decision Making Medical Records Screening: Per USPSTF and CDC recommendations, given the prevalence of disease in our region, it is our hospital?s policy to screen for HIV and viral Hepatitis for all patients aged 18 and over and those with ongoing risk factors. Nolberto Inquiry Pt receiving controlled substance: No Nolberto was queried for this patient: No Vital Signs: 05/10/24 13:20 Temperature 97.9 F Temperature Source Oral Pulse Rate [Left Brachial] 93 H Respiratory Rate 20 Blood Pressure [Left Arm] 124/82 Blood Pressure Mean [Left Arm] 96 Blood Pressure Source [Left Arm] Automatic Cuff Blood Pressure Position [Left Arm] Sitting 02 Sat by Pulse Oximetry 98 Oxygen Delivery Method Room Air
[2024-05-10 14:00] VITALS: BP 124/82; PULSE 93; RESP 20; TEMP 36.6; O2SAT 98
== END 2024-05-10 14:02 | disposition home or self-care (01) ==
PROVIDERS: Emergency Provider Nurse Practitioner; PCP Nurse Practitioner Family
DX: H66.91 Otitis media, unspecified, right ear (principal)
CPT/HCPCS: 99213; G0381

== ENCOUNTER 2024-05-23 12:24 | Day surgery (SDC) | payer OTHER, SELFPAY ==
[2024-05-23 12:40] VITALS: BMI 77.9
[2024-05-23 12:51] VITALS: BP 113/84; PULSE 103; RESP 18; TEMP 36.4; O2SAT 99
--- NOTE | 2024-05-23 12:53 | EXP.ANES.CKL ---
[facility] Disclaimer: The information contained in this section may have been updated after the patient was seen, as this information can be updated by other users. Medical History Chest pain Heart palpitations Diverticulosis Anxiety and depression Family History Other FHx: mental illness Substance abuse Social History (Updated 05/23/24 @ 12:47 by Angelia Tran RN) Smoking Status: Current every day smoker tobacco type: e-cigarettes alcohol intake: never substance use type: marijuana current occupational status: other Travel in the last 8 weeks: None number of children: 0 [facility] Anesthesia Checklist Patient Identification Patient Identification: Arm Band, Family and Verbal (Name & ) Structural Data Admitted From: Home Planned Operative Procedure/s: EGD Consent for Planned Operative Procedure(s) Verified: Yes Verified Documents: Surgical Consent and History and Physical NPO Status Verified Time NPO: 20:00 Chart Verification Results Verified: CBC, BMP, ECG, Chest Xray and HCG Additional verifications Patient : No Anesthesia Reactions: No Cardiovascular Assessment Heart Sounds: S1 & S2 Pulse Rhythm: Irregular Peripheral Edema: No Airway Assessment Mallampati Score:: Class II C-Spine Mobility Assessed: Yes (FROM) TMJ Mobility Assessed: Yes Dentition: Good Dentition (Nothing loose per pt.) Neurological Assessment Level of Consciousness: Awake, Alert, Appropriate and Follows Commands Hx Seizures: No Numbness or tingling in extremities: No Anesthesia Plan Anesthesia Risk discussed: Yes Anesthesia Plan: Verified ASA Class: II Anesthesia Type: MAC
[2024-05-23] MEDS: LACTATED RINGERS 1000ML 1,000 ML 25 ML IV (12:56)
--- NOTE | 2024-05-23 13:09 | EXP.HP ---
History of Present Illness *Admission Date: 05/23/24 *Reason for visit:: Dyspepsia, bloating, belching, nausea and vomiting *History of present illness: Mrs. Cintron is a 24-year-old female who is here for diagnostic upper endoscopy secondary to abdominal pain/dyspepsia, bloating, belching, nausea, vomiting and weight loss. The examination is deemed medically necessary for diagnostic EGD. The patient has been seen, interviewed and examined prior to the procedure by both myself and the anesthesia provider. [facility] Disclaimer: The information contained in this section may have been updated after the patient was seen, as this information can be updated by other users. Medical History (Updated 05/23/24 @ 13:11 by Owen Roberts II, MD) Nausea & vomiting Chest pain Heart palpitations Diverticulosis Anxiety and depression Family History Other FHx: mental illness Substance abuse Social History (Updated 05/23/24 @ 12:47 by Angelia Tran RN) Smoking Status: Current every day smoker tobacco type: e-cigarettes alcohol intake: never substance use type: marijuana current occupational status: other Travel in the last 8 weeks: None number of children: 0 caffeine: Yes Other Medical History Have you received the Flu Vaccine for this season: No Have you received the Pneumonia Vaccine: No Review of Systems Review of Systems Review of systems (narrative): Negative *Cardiovascular Comments: Negative *Gastrointestinal Comments: Negative *Genitourinary Comments: Negative *Musculoskeletal Comments: Negative *Neurologic Comments: Negative Meds Home Medications and Allergies Home Medications ?Medication ?Instructions ?Recorded ?Confirmed ?Type levonorgestrel-ethinyl estradiol 1 tab PO DAILY Control 02/13/23 05/23/24 History 0.1 mg-20 mcg tablet (Aviane) lamotrigine 25 mg tablet 25 mg PO BID 05/06/24 05/23/24 History ondansetron 4 mg disintegrating 4 mg PO Q8H PRN nausea and 05/06/24 05/23/24 Rx tablet vomiting #10 tabs New Prescriptions to Start Prescriptions: Allergies Allergy/AdvReac Type Severity Reaction Status Date / Time No Known Allergies Allergy Verified 05/23/24 12:49 Exam Data for Last 24 hours Vital signs and Labs for Last 24 Hours: Temp Pulse Resp BP Pulse Ox O2 Del Method 97.5 F L 103 H 18 113/84 99 Room Air 05/23/24 12:51 05/23/24 12:51 05/23/24 12:51 05/23/24 12:51 05/23/24 12:51 05/23/24 12:51 I & O for Last 24 hours: Intake & Output 05/20/24 05/21/24 05/22/24 05/23/24 23:59 23:59 23:59 23:59 Weight 440 lb *Routine HEENT Exam Head: Present normocephalic Eye: Present EOMI and PERRL ENT: Present mucous membranes moist *Routine Neck Exam Neck: Present supple *Routine Respiratory Exam Respiratory: Present CTA bilaterally *Routine Cardiovascular Exam Cardiovascular: Present RRR *Routine Abdominal Exam Abdominal: Present soft and normoactive bowel sounds; Absent tenderness *Routine Rectal Exam Rectal:: deferred *Routine Genitalia Exam Genitalia:: deferred *Routine Extremities Exam Extremities: Absent cyanosis, clubbing or edema *Routine Skin Exam Skin: Present warm; Absent rash *Routine Neurological Exam Neurological: Present alert and oriented X3 Assessment and Plan *Assessment and plan (1) Bloating: Status: Acute Category: Medical Code(s): R14.0 - Abdominal distension (gaseous) (2) Nausea & vomiting: Status: Resolved Qualifiers: Vomiting Intractability: unspecified Vomiting type: unspecified Qualified Code(s): R11.2 - Nausea with vomiting, unspecified Category: Medical Code(s): R11.2 - Nausea with vomiting, unspecified (3) Dyspepsia: Status: Acute Category: Medical Code(s): R10.13 - Epigastric pain Plan A/P: 1. Nausea, vomiting, dyspepsia, loss of appetite and weight loss is the preprocedural diagnosis. The patient will be anesthetized/sedated using MAC sedation. The patient has been seen and examined. Cardiac and lung assessment prior to the examination is stable. Proceed with planned upper endoscopy
--- NOTE | 2024-05-23 13:29 | P.PCN_ITS ---
[facility] Procedure Note Date: 05/23/24 Time: 14:13 Procedure Note:: Upper Endoscopy Procedure Report: Esophagogastroduodenoscopy with cold biopsies Endoscopost: Owen Roberts II, MD Referring Physician: Adrianna LIMON Date of Procedure: May 23, 2024 Equipment: Olympus GIF 190 standard upper endoscope Sedation: MAC sedation Indications: Ms. Cintron is a 24-year-old female who developed abdominal pain in May of last year. This initially started with lower abdominal pain, nausea and vomiting. She has gone to the emergency department multiple times and has had unremarkable CAT scan. She has had continued episodes of nausea and vomiting. She does report having a bowel movement every other day with some intermittent incomplete defecation. She has had a loss of appetite especially over the last several months. She has lost 15 pounds. She did have a normal right upper quadrant abdominal ultrasound and a normal HIDA scan with ejection fraction of 88%. The patient states that she continues to use marijuana daily or twice daily. She states that this marijuana helps to relieve the nausea. She does get relief of her symptoms with hot showers. Procedure: Prior to the procedure, a history and physical exam was performed, and patient's medications and allergies were reviewed. The risks, benefits and alternatives of the sedation and procedure were discussed with the patient. All questions were answered and informed consent was obtained. The patient was brought to the procedure room. Patient identification and proposed procedure were verified by the physician and the nurse. The patient was placed in a left lateral decubitus position and the scope was passed under direct vision. Throughout the procedure, the patient's blood pressure, pulse, and oxygen saturations were monitored continuously. The upper GI endoscopy was accomplished without diffic ulty. The patient tolerated the procedure well. Findings: The scope was passed directly into the upper esophagus and advanced to the third portion of the duodenum. The post bulbar duodenum and duodenal bulb were normal with normal mucosa and conniventes. Cold biopsies were taken from the first portion of duodenum and duodenal bulb to rule out celiac disease. The scope was withdrawn through a normal duodenal bulb and pylorus into the stomach. There was minimal reactive gastropathy of the prepyloric antrum. The remainder of the antrum body and fundus were normal. Upon retroflexion there was no hiatal hernia. Cold biopsies were taken from the antrum. The scope was then withdrawn into the esophagus. There was no evidence of any reflux esophagitis and the remainder of the esophageal mucosa was entirely normal. Impression: 1. Minimal prepyloric antral gastropathy but otherwise normal upper endoscopic examination Plan: The patient does have fairly striking symptomatology without significant diagnostic findings on her CAT scan, ultrasound, HIDA scan or upper endoscopy. I do feel that her symptom complex is compatible with cannabinoid hyperemesis syndrome. Cannabinoid hyperemesis syndrome is typically seen with chronic marijuana use but can be seen with acute or acute on chronic use. Patients may complain of nausea alone in the chronic setting or in the acute setting may have abdominal pain, vomiting, or nausea that is typically relieved by hot showers. The only definitive treatment is the removal of cannabis exposure. The recovery phase starts when you stop marijuana use. Symptoms usually start to go away within several days but they may not go away for up to a couple of months after cessation.
[2024-05-23 13:36] LABS: HCG Qualitative, Serum Negative (Negative)
[2024-05-23 14:12] VITALS: O2SAT 98
[2024-05-23 14:26] VITALS: BP 94/61; PULSE 89; RESP 18; TEMP 36.1; O2SAT 95
[2024-05-23 14:36] VITALS: BP 100/71; PULSE 92; RESP 18; O2SAT 99
[2024-05-23 14:46] VITALS: BP 129/70; PULSE 80; RESP 18; O2SAT 95
[2024-05-23 15:05] VITALS: BP 118/74; PULSE 88; RESP 18; O2SAT 96
== END 2024-05-23 15:05 | disposition home or self-care (01) ==
PROVIDERS: PCP Nurse Practitioner Family; Visit Provider Internal Medicine Gastroenterology
PROC: 0DJ08ZZ Inspection of Upper Intestinal Tract, Via Natural or Artificial Opening Endoscopic (ICD-10-PCS; CPT 43235; principal; 2024-05-23 14:00)
DX: R14.0 Abdominal distension (gaseous) (principal); R11.2 Nausea with vomiting, unspecified; R10.13 Epigastric pain; K31.9 Disease of stomach and duodenum, unspecified
CPT/HCPCS: 43239; 84703; J7120

== ENCOUNTER 2024-08-04 15:26 | Emergency (ER) | payer OTHER, SELFPAY ==
[2024-08-04 16:40] VITALS: BP 112/76; PULSE 82; RESP 19; TEMP 37; O2SAT 99; BMI 24.4
--- NOTE | 2024-08-04 16:52 | ED_ITS ---
Discharge Plan Disposition Patient Disposition: Home, Self-Care Condition: Good Prescriptions Prescriptions: New amoxicillin-pot clavulanate 875-125 mg Tablet 1 tab PO Q12H Qty: 20 0RF No Action levonorgestrel-ethinyl estrad [Aviane] 0.1-20 mg-mcg tablet 1 tab PO DAILY lamotrigine 25 mg tablet 25 mg PO BID Patient Comments: TAKE 1 TABLET BY MOUTH AT BEDTIME FOR 14 DAYS THEN INCREASE TO 1 TABLET TWICE DAILY Referrals Follow up/Referrals: Adrianna Lopez APRN [Primary Care Provider] - See instructions Activity Restrictions/Add. Instructions Additional Instructions/Restrictions: Clean bites well with antibacterial soap and water Take oral antibitoics as directed Follow up with your Family Doctor if any signs of infection, redness or swelling Straight to ER if any life threatening symptoms Clinical Impressions Clinical Impression: Dog bite of face Instructions Patient Instructions: Animal Bites, DI for Dog Bite, Amoxicillin and Clavulanic Acid Print Language Print Language: Com[place]an Discharge ED Provider: Geri Gibson [facility] HPI General Stated complaint: bit by dog on rt eye 08/03/24 Mode of Arrival: Ambulatory Source of Information: Patient Limitations: No Limitations Time Seen by Provider: 08/04/24 16:52 Description of Symptoms (Recalled from Triage Doc. by RN): PATIENT STATES SHE WAS AT THE DOG PARK YESTERDAY AND WHILE TRYING TO KEEP ANOTHER DOG FROM FIGHTING HER DOG, SHE WAS BIT IN THE FACE. ABRASIONS AND REDNESS NOTED AROUND RIGHT EYE HEENT Symptoms (Recalled from RN notes): Yes Resp Symptoms (Recalled from RN notes): No Skin Symptoms (Recalled from RN notes): Yes MS Symptoms (Recalled from RN notes): No Functional Status (Recalled from RN notes): WNL History of Present Illness Provider Complaint: Patient states that she was at the dog park yesterday when another dog tried to attack hers, States that she was trying to separate them and she was bitten and hit several times in her face by the other dog under her right eye and on her chin States today she was sore and bruised and worried about infection Denies any loss of vision or pain in her right eye and has several small lacerations to her face Related Data Home Medications ?Medication ?Instructions ?Recorded ?Confirmed levonorgestrel-ethinyl estradiol 1 tab PO DAILY Control 02/13/23 08/04/24 0.1 mg-20 mcg tablet (Aviane) lamotrigine 25 mg tablet 25 mg PO BID 05/06/24 08/04/24 Previous Rx's ?Medication ?Instructions ?Recorded amoxicillin 875 mg-potassium 1 tab PO Q12H #20 tabs 08/04/24 clavulanate 125 mg tablet Allergies Allergy/AdvReac Type Severity Reaction Status Date / Time No Known Allergies Allergy Verified 05/23/24 12:49 Worker's Comp Is this a Worker's Comp case?: No [facility] Disclaimer: The information contained in this section may have been updated after the patient was seen, as this information can be updated by other users. Medical History (Updated 08/04/24 @ 18:31 by Geri Gibson APRN) Cannabinoid hyperemesis syndrome Nausea & vomiting Chest pain Heart palpitations Diverticulosis Anxiety and depression Family History Other FHx: mental illness Substance abuse Social History (Updated 05/23/24 @ 12:47 by Angelia Tran RN) Smoking Status: Current every day smoker tobacco type: e-cigarettes alcohol intake: never substance use type: marijuana current occupational status: other Travel in the last 8 weeks: None number of children: 0 caffeine: Yes Have you lived/traveled outside [place] in past 30 days?: No Contact w/someone who lives/traveled outside [place] past 30 days?: No Exposure to someone with infectious disease in past 14 days?: No Do you have a fever (greater than 100.4 F or 38 C)?: No Have you tested positive for COVID-19: No Exposed to someone with COVID-19 in past 14 days?: No Do you have a sore throat?: No Do you have a cough?: No Do you have any weakness?: No Do you have any diarrhea?: No Are you experiencing any unusual bleeding?: No Do you have any muscle aches/pain?: No Do you have any abdominal pain?: No Are you experiencing loss of taste or smell?: No ROS Obtained: Yes All systems reviewed & no additional complaints except as documented and Yes Systems reviewed as appropriate & no additional complaints except as documented Constitutional Constitutional: Reports system reviewed and no additional complaints, except as documented and Reports as per HPI Eyes Eyes: Reports system reviewed and no additional complaints, except as documented, Reports as per HPI, Denies blurry vision, Denies change in vision, Denies diplopia, Denies eye discharge, Denies floaters and Denies irritation ENT Ears, Nose, Mouth, and Throat: Reports system reviewed and no additional complaints, except as documented and Reports as per HPI Cardiovascular Cardiovascular: Reports system reviewed and no additional complaints, except as documented and Reports as per HPI Respiratory Respiratory: Reports system reviewed and no additional complaints, except as documented and Reports as per HPI Gastrointestinal Gastrointestingal: Reports system reviewed and no additional complaints, except as documented and as per HPI Genitourinary Female Genitourinary: Reports system reviewed and no additional complaints, except as documented and Reports as per HPI Musculoskeletal Musculoskeletal: Reports system reviewed and no additional complaints, except as documented and Reports as per HPI Integumentary/Breasts Skin/Breast: Reports system reviewed and no additional complaints, except as documented, Reports as per HPI and Reports other Comments: bruising, mild swelling and several small bite/lacerations to face under right eye and on chin area Physical Exam General General appearance: alert and in no apparent distress Head Head exam: other Expanded Head Exam Head exam physical: Present abrasion Head image: 2 1. small abrasions noted 2. several small closed laceration noted with mild swelling and bruising 3. small closed laceration noted no active bleeding Respiratory Respiratory exam: Present normal lung sounds bilaterally; Absent respiratory distress or wheezes Cardiovascular Cardiovascular exam: Present regular rate, normal rhythm and normal heart sounds Abdominal Exam Abdominal exam: Present soft and normal bowel sounds; Absent distention or tenderness Neurological Exam Neurological exam: Present alert, oriented X3 and normal gait Medical Decision Making Medical Records Screening: Per USPSTF and CDC recommendations, given the prevalence of disease in our region, it is our hospital?s policy to screen for HIV and viral Hepatitis for all patients aged 18 and over and those with ongoing risk factors. Nolberto Inquiry Pt receiving controlled substance: No Nolberto was queried for this patient: No Vital Signs: 08/04/24 16:40 Temperature 98.6 F Temperature Source Oral Pulse Rate [Left Brachial] 82 Respiratory Rate 19 Blood Pressure [Left Arm] 112/76 Blood Pressure Mean [Left Arm] 88 Blood Pressure Source [Left Arm] Automatic Cuff Blood Pressure Position [Left Arm] Sitting 02 Sat by Pulse Oximetry 99 Oxygen Delivery Method Room Air Radiology Data #1: Image(s): Facial Bones Image Reviewed: Yes I have reviewed radiologist's interpretation FINDINGS: Sinuses: Well aerated. Bones/joints: No evidence of facial bone fracture or deformity. No focal osseous lesion. Soft tissues: Unremarkable. IMPRESSION: Negative facial bone series
--- NOTE | 2024-08-04 16:55 | XR_ITS ---
PROCEDURE INFORMATION: Exam: XR Facial Bones, Minimum of 3 Views, Complete Exam date and time: 08/04/2024 4:56 PM Age: 24 years old Clinical indication: Injury or trauma; Other: Dog bite; Puncture; Cheek bone; Right; Not specified; Additional info: Dog bite yesterday, lacerations under both eyes, mainly under right eye, swelling & redness TECHNIQUE: Imaging protocol: XR of the facial bones, minimum of 3 views. Complete exam. COMPARISON: No relevant prior studies available. FINDINGS: Sinuses: Well aerated. Bones/joints: No evidence of facial bone fracture or deformity. No focal osseous lesion. Soft tissues: Unremarkable. IMPRESSION: Negative facial bone series
[2024-08-04 18:39] VITALS: BP 112/76; PULSE 82; RESP 19; TEMP 37; O2SAT 99
[2024-08-04] MEDS: AMOXICILLIN/POT CLAVULAN 500MG TABLET 1 EACH PO (18:44)
== END 2024-08-04 18:45 | disposition home or self-care (01) ==
PROVIDERS: Emergency Provider Nurse Practitioner; PCP Nurse Practitioner Family
DX: S01.459A Open bite of unspecified cheek and temporomandibular area, initial encounter (principal); W54.0XXA Bitten by dog, initial encounter
CPT/HCPCS: 70150; 99213; G0381